=== PATIENT | female | born 1950 | race Caucasian/White ===

== ENCOUNTER 2016-11-04 15:21 | Inpatient (IN) | payer OTHER ==
[2016-11-04] MEDS ORDERED: NITROGLYCERIN SL PRN (15:45)
[2016-11-04] MEDS ORDERED: ASPIRIN PO STA (15:45)
[2016-11-04] MEDS ORDERED: DUONEB (A & A) ONE (15:46)
--- NOTE | 2016-11-04 15:56 | PROVIDER DOCUMENTATION ---
HPI-Respiratory General <Shaggy Barros Jr - Last Filed: 11/04/16 17:05> - General Source: patient, EMS - History of Present Illness-Resp Quality of Pain: reports: none Severity in ED: reports: mild Onset/Duration: reports: this morning Timing: reports: still present Similar Symptoms Previously?: No Recently seen or treated by another doctor?: No <ElmoreChema - Last Filed: 11/04/16 17:43> <Soraida Garza - Last Filed: 11/04/16 20:14> - General Chief Complaint: Shortness of Breath Stated Complaint: Wheezing,Urinary Pain Time Seen by Provider: 11/04/16 15:44 Allergies/Adverse Reactions: Patient Allergies Allergy/AdvReac Type Severity Reaction Status Date / Time oxybutynin Allergy Unknown Verified 08/25/16 01:05 pregabalin [From Lyrica] Allergy SWELLING Verified 08/25/16 01:05 Sulfa (Sulfonamide AdvReac HIVES Verified 08/25/16 01:05 Antibiotics) Home Medications: Fluticasone 50 Mcg Nasal [place] [Flonase] 2 spray [place] DAILY PRN PRN 06/24/14 Gabapentin [Neurontin] 600 mg PO TID 06/24/14 Metoprolol Tartrate 25 mg PO BID 06/24/14 Potassium Chloride E.r. [Klor-Con] 10 meq PO DAILY 06/24/14 Tizanidine [Zanaflex] 4 mg PO QHS 06/24/14 Tolterodine Tartrate [Detrol LA] 4 mg PO QHS 06/24/14 Aspirin 81 mg PO DAILY 11/05/15 Atorvastatin Calcium [Lipitor] 40 mg PO QHS 11/05/15 Diazepam [Valium] 1 tab PO DAILY 07/29/16 Albuterol Sulfate [Proair Hfa] 2 puff IH Q4-6H PRN PRN 08/05/16 Alosetron HCl 0.5 mg PO BID 08/05/16 Diclofenac Sodium 50 mg PO BID 08/05/16 Ergocalciferol (Vitamin D2) [Vitamin D] 50,000 unit PO Q7D 08/05/16 Prednisone 20 mg PO BID 08/05/16 Temazepam 15 mg PO QHS 08/05/16 - History of Present Illness-Resp Nature of Presenting Problem: Reports to er by ems with cc of sob and lethargy. EMS reports family stated that pt hasn't been acting herself states that she took some generic percocet this mornig. EMS reports on there arrival that pt was satting at 88% after breathing treatment went up to 96% pt was alert and oriented x 3 on arrival.Pt denies being on home 02 hx of copd and reports smokes 1/2 ppd (Chema Elmore) Review of Systems - Adult - REVIEW OF SYSTEMS - ADULT ROS:: limited per condition Constitutional: reports: see HPI Eyes: denies: discharge, blurred vision, double vision Ears, Nose, Mouth & Throat: denies: ear discharge, ear pain, sinus problem, nose pain, throat pain Cardiovascular: reports: no symptoms reported Respiratory: reports: see HPI, shortness of breath. denies: hemoptysis, pleurisy, wheezing Gastrointestinal: reports: no symptoms reported Genitourinary: reports: no symptoms reported Musculoskeletal: reports: no symptoms reported Integumentary: reports: no symptoms reported Neurological: reports: no symptoms reported Psychiatric: reports: no symptoms reported Endocrine: reports: no symptoms reported Hematologic/Lymphatic: reports: no symptoms reported Allergic/Immunologic: reports: no symptoms reported All Other Systems: Reviewed and Negative <Chema Elmore - Last Filed: 11/04/16 17:43> Past History - Adult - PAST MEDICAL HISTORY-ADULT Review of Records: reports: Nursing Assessment Review, Medications Reviewed Major Childhood Illnesses: reports: denies history Cardiovascular: reports: HTN, hyperlipidemia Neurological: reports: CVA - PRIOR SURGERIES/PROCEDURES Surgical/Procedure History: reports: none - IMMUNIZATION STATUS Childhood Immunizations: See Nurse Assessment Flu Vaccine: See Nurse Assessment - FAMILY HISTORY Family History: reviewed, not pertinent - SOCIAL HISTORY Smoking: cigarettes, less than 1 pack/day Provider spent 3-5 mins advising pt. on dangers of tobacco.: Discussed manners to quit use, and f/u contacts for add'l counseling. Substance Use: none/never <Chema Elmore - Last Filed: 11/04/16 17:43> Physical Exam-General - PHYSICAL EXAM-ADULT Initial Vital Signs Reviewed: Yes - CONSTITUTIONAL General Appearance: alert, no apparent distress, lethargic - EYES Eyes: PERRL/EOMI - HEAD, EARS, NOSE, MOUTH & THROAT HENMT: normocephalic/atraumatic, moist mucous membranes, normal ENT inspection, TMs normal, pharynx normal - RESPIRATORY Respiratory: chest non-tender, lungs clear, normal breath sounds, no pleuratic chest pain, no respiratory distress, respiratory distress, other (pt is satting 88 on 3lpm NC upon exam) - CARDIOVASCULAR Cardiovascular: normal peripheral pulses, regular rate, rhythm, no edema, no gallop, no JVD, no murmur - GASTROINTESTINAL (ABDOMEN) Abdominal Exam: normal bowel sounds, non tender, soft - MUSCULOSKELETAL Back Exam: normal inspection Extremity: normal range of motion, non-tender - SKIN Integumentary: normal turgor, warm/dry, jaundice - PSYCHIATRIC Psych/Mental Status: other (pt continues to doze in and out of sleep upon exam) <Chema Elmore - Last Filed: 11/04/16 17:43> Progress - XRAY 1 XRAY Study: Chest Impression: Abnormal (low lung volumes. nonspecific findings.) <Shaggy Barros Jr - Last Filed: 11/04/16 17:05> - EKG 1 Time of EKG reading by physician:: 15:35 EKG Read and Signed by:: Shaggy Barros Jr EKG Interpretation (*Must complete 3 of following elements*): Abnormal (poss lae ) Rate: 87 Rhythm: nsr [place]: normal - CHANGE OF SHIFT REPORT (ED Provider) Report Given and Care Transferred to:: Time of Transfer: 18:00 Items Pending: Labs <Chema Elmore - Last Filed: 11/04/16 17:43> - REASSESSMENT Reassessment #1 Time Reassessed: 19:56 (Dr. Bailey at bedside to discuss pt results. Will consult Dr. Valladares for possible admission) - CONSULTS/PCP/HOSPITALIST Notification #1 *Consult/PCP/Hospitalist*: Dr. Valladares Time Discussed: 20:03 Consult Disposition: Admit <Soraida Garza - Last Filed: 11/04/16 20:14> - PLAN OF CARE/RESULTS Progress/Plan/Lab Results: Orders Category Date Time Status Cardiac Monitoring DIRECTED Care 11/04/16 15:45 Active Saline Loc NOW Care 11/04/16 15:45 Active CHEST-PORTABLE [RAD] Stat Exams 11/04/16 15:45 Taken CBC WITH ELECTRONIC DIFF [HEME] Stat Lab 11/04/16 16:05 Ordered CK PROFILE [SP CHEM] Stat Lab 11/04/16 16:05 Ordered COMPREHENSIVE METABOLIC PANEL [CHEM] Stat Lab 11/04/16 16:05 Ordered MAGNESIUM [CHEM] Stat Lab 11/04/16 16:05 Ordered PRO B-NATRIURETIC PEPTIDE Stat Lab 11/04/16 16:05 Ordered PROTIME WITH INR [COAG] Stat Lab 11/04/16 16:05 Ordered PTT [COAG] Stat Lab 11/04/16 16:05 Ordered TROPONIN T Stat Lab 11/04/16 16:05 Ordered Albuterol 2.5MG/Ipratrop 0.5MG [Duoneb (A & A)] Med 11/04/16 15:46 Discontinued 3 ml .ROUTE .STK-MED ONE Aspirin Med 11/04/16 15:45 Discontinued 325 mg PO STAT STA Naloxone [Narcan] Med 11/04/16 16:16 Discontinued 0.4 mg IV NOW ONE Nitroglycerin Sl [Nitroglycerin] Med 11/04/16 15:45 Active 0.4 mg SL Q5M PRN PRN EKG [EKG] ONCE Ther 11/04/16 15:33 Ordered Vital Signs - 24 hr 11/04/16 15:39 Temperature 98.0 F Pulse Rate 87 Respiratory 20 Rate Blood Pressure 103/86 O2 Sat by Pulse 87 L Oximetry (Chema Elmore) plan of care: imaging, labs, medications, EKG Orders Category Date Time Status Admit - [facility] Routine AdmDCTranf 11/04/16 20:09 Ordered Activity - Strict Bedrest ORDERED Care 11/04/16 20:08 Active Cardiac Monitoring DIRECTED Care 11/04/16 15:45 Active Neurological Check Q4H Care 11/04/16 20:10 Active Saline Loc NOW Care 11/04/16 15:45 Active Vital Signs Order ORDERED Care 11/04/16 20:08 Active NPO Diet 11/04/16 20:11 Active CHEST-PORTABLE [RAD] Stat Exams 11/04/16 15:45 Draft BLOOD CULTURE [BLDCUL] Stat Lab 11/04/16 15:55 Results CBC WITH ELECTRONIC DIFF [HEME] Stat Lab 11/04/16 18:22 Completed CK PROFILE [SP CHEM] Stat Lab 11/04/16 18:22 Completed COMPREHENSIVE METABOLIC PANEL [CHEM] Stat Lab 11/04/16 18:22 Completed MAGNESIUM [CHEM] Stat Lab 11/04/16 18:22 Completed PRO B-NATRIURETIC PEPTIDE Stat Lab 11/04/16 18:22 Completed PROTIME WITH INR [COAG] Stat Lab 11/04/16 18:22 Completed PTT [COAG] Stat Lab 11/04/16 18:22 Completed TROPONIN T Stat Lab 11/04/16 18:22 Completed 0.9% Sodium Chloride Inj [Ns] 1,000 ml Med 11/04/16 19:27 Active IV 125 mls/hr Albuterol 2.5MG/Ipratrop 0.5MG [Duoneb (A & A)] Med 11/04/16 15:46 Discontinued 3 ml .ROUTE .STK-MED ONE Albuterol 2.5MG/Ipratrop 0.5MG [Duoneb (A & A)] Med 11/04/16 17:16 Discontinued 3 ml INH NOW ONE Aspirin Med 11/04/16 15:45 Discontinued 325 mg PO STAT STA Magnesium Sulfate 2 gm/S.w.i. [Magnesium Sulfate 2 gm/S Med 11/04/16 19:29 Active .w.i] 50 ml IV NOW Naloxone [Narcan] Med 11/04/16 16:16 Discontinued 0.4 mg IV NOW ONE Nitroglycerin Sl [Nitroglycerin] Med 11/04/16 15:45 Active 0.4 mg SL Q5M PRN PRN Aerosol Treatments Routine Oth 11/04/16 17:16 Completed Aerosol Treatments Stat Oth 11/04/16 17:16 Completed Oxygen Device Routine Oth 11/04/16 20:10 Active Telemetry [OM.EQ] Routine Oth 11/04/16 20:08 Active EKG [EKG] ONCE Ther 11/04/16 15:33 Ordered Laboratory Tests 11/04/16 11/04/16 11/04/16 18:22 18:22 18:22 WBC 18.83 H RBC 3.47 L Hgb 10.4 L Hct 30.9 L MCV 89.0 MCH 30.0 MCHC 33.7 RDW Std Deviation 15.0 H Plt Count 303 MPV 10.7 H Immature Gran % (Auto) 0.6 H Neut % (Auto) 93.1 H Lymph % (Auto) 2.9 L [place] % (Auto) 3.1 Eos % (Auto) 0.2 Baso % (Auto) 0.1 Immature Gran # (Auto) 0.11 H Neut # 17.54 H Lymph # 0.54 L [place] # 0.59 Eos # 0.03 Baso # 0.02 Segmented Neutrophils Cancelled Band Neutrophils Cancelled Lymphocytes Cancelled Monocytes Cancelled Eosinophils Cancelled Basophils Cancelled Metamyelocytes Cancelled Myelocytes Cancelled Promyelocytes Cancelled Nucleated RBCs Cancelled Atypical Lymphocytes Cancelled Blast Cells Cancelled Hypochromia Cancelled Vacuolization Cancelled Toxic Granulation Cancelled Dohle Bodies Cancelled Large Platelets Cancelled Polychromasia Cancelled Poikilocytosis Cancelled Basophilic Stippling Cancelled Anisocytosis Cancelled Microcytosis Cancelled Macrocytosis Cancelled Spherocytes Cancelled Sickle Cells Cancelled Target Cells Cancelled Ovalocytes Cancelled Stomatocytes Cancelled Richards-Oak Bodies Cancelled Chris Cells Cancelled Unidentified Cells Cancelled Schistocytes Cancelled PT INR PTT (Actin FS) Sodium 113 L* Potassium 4.4 Chloride 79 L Carbon Dioxide 19 L Anion Gap 15 BUN 22 Creatinine 2.4 H Estimated GFR/1.73 m2 20 BUN/Creatinine Ratio 9 Glucose 62 L Calculated Osmolality 230 Calcium 8.8 Magnesium 0.9 L* Total Bilirubin 0.92 AST 23 ALT 6 L Alkaline Phosphatase 136 H Creatine Kinase 201 H Creatine Kinase Index 3.3 H CK-MB (CK-2) 6.55 H Troponin T Oin-W-Koqqvtjtdur Pept 4153 H Total Protein 5.7 L Albumin 3.1 L Globulin 2.6 Albumin/Globulin Ratio 1.2 11/04/16 11/04/16 18:22 18:22 WBC RBC Hgb Hct MCV MCH MCHC RDW Std Deviation Plt Count MPV Immature Gran % (Auto) Neut % (Auto) Lymph % (Auto) [place] % (Auto) Eos % (Auto) Baso % (Auto) Immature Gran # (Auto) Neut # Lymph # [place] # Eos # Baso # Segmented Neutrophils Band Neutrophils Lymphocytes Monocytes Eosinophils Basophils Metamyelocytes Myelocytes Promyelocytes Nucleated RBCs Atypical Lymphocytes Blast Cells Hypochromia Vacuolization Toxic Granulation Dohle Bodies Large Platelets Polychromasia Poikilocytosis Basophilic Stippling Anisocytosis Microcytosis Macrocytosis Spherocytes Sickle Cells Target Cells Ovalocytes Stomatocytes Richards-Oak Bodies Chris Cells Unidentified Cells Schistocytes PT 12.0 H INR 1.13 PTT (Actin FS) 42.3 H Sodium Potassium Chloride Carbon Dioxide Anion Gap BUN Creatinine Estimated GFR/1.73 m2 BUN/Creatinine Ratio Glucose Calculated Osmolality Calcium Magnesium Total Bilirubin AST ALT Alkaline Phosphatase Creatine Kinase Creatine Kinase Index CK-MB (CK-2) Troponin T < 0.010 Xmb-B-Rcskrnrighs Pept Total Protein Albumin Globulin Albumin/Globulin Ratio Vital Signs - 24 hr 11/04/16 11/04/16 11/04/16 15:39 17:20 17:24 Temperature 98.0 F Pulse Rate 87 86 Respiratory 20 20 Rate Blood Pressure 103/86 91/57 O2 Sat by Pulse 87 L 95 Oximetry 11/04/16 19:47 Temperature Pulse Rate Respiratory Rate Blood Pressure 117/69 O2 Sat by Pulse 96 Oximetry Pt/family given results. Pt will be admitted to the hospital by Dr. Valladares. PT/ Family in agreement with plan of care. (Soraida Garza) Departure <Shaggy Barros Jr - Last Filed: 11/04/16 17:05> <Chema Elmore - Last Filed: 11/04/16 17:43> - Departure Time of Disposition Order: 20:13 Certified Medical Emergency: Emergent <Soraida Garza - Last Filed: 11/04/16 20:14> - Departure DIAGNOSIS: Hyponatremia Disposition: ADMITTED INPATIENT 09 Condition: Stable Attestation - Scribe Verification/Attestation Scribe:: Chema Elmore Acting as Scribe for:: Shaggy Barros Jr Scribe documention review:: This chart was documented by a scribe and accurately reflects the service the provider performed and the decisions made by the provider. <Chema Elmore - Last Filed: 11/04/16 17:43> - Scribe Verification/Attestation #2 Shift Change Time: 18:00 Scribe Name: Soraida Garza Acting as Scribe for:: Shahid Bailey <Soraida Garza - Last Filed: 11/04/16 20:14> Physician Attestation - Physician Attestation I, the provider, attest to the following statement:: Shahid Bailey Physician documentation Attestation:: This documentation recorded by the scribe accurately reflects the service I personally performed and the decisions made by me. <Soraida Garza - Last Filed: 11/04/16 20:14>
[2016-11-04] MEDS ORDERED: NARCAN IV ONE (16:16)
--- NOTE | 2016-11-04 16:59 | Diag Imaging Result Document ---
PROCEDURE NAME: CHEST-PORTABLE - 11/04/2016 PORTABLE CHEST X-RAY: COMPARISON: 08/25/2016. FINDINGS: Lung volumes are much lower with nonspecific central crowding. Infiltrates or edema cannot be excluded. Heart size remains normal. IMPRESSION: Much lower lung volumes. Nonspecific findings.
[2016-11-04] MEDS ORDERED: DUONEB (A & A) INH ONE (17:16)
[2016-11-04 18:32] LABS: BASO% 0.1 % (0.0-0.8); EOS# 0.03 X1000 (0.0-0.7); EOS% 0.2 % (0.0-10.0); HEMATOCRIT 30.9 % (37.0-47.0); HEMOGLOBIN 10.4 g/dL (12.0-16.0); IMM GRAN# 0.11 X1000 (0.0-0.04); IMM GRAN% 0.6 % (0.0-0.5); LYMPH# 0.54 X1000 (1.2-3.4); LYMPH% 2.9 % (20.5-51.1); MANUAL DIFF NEEDED? YES; MCHC 33.7 g/dL (33-37); MONO# 0.59 X1000 (0.11-0.59); MONO% 3.1 % (1.7-9.3); MPV 10.7 FL (7.4-10.4); NEUT% 93.1 % (42.2-75.2); PLT 303 X1000 (130-400); RBC 3.47 XMIL (4.2-5.4)
[2016-11-04 18:42] LABS: INR 1.13
[2016-11-04 18:43] LABS: PTT 42.3 Seconds (22.0-36.0)
[2016-11-04 19:12] LABS: ALBUMIN 3.1 g/dL (3.5-5.0); CALCIUM 8.8 mg/dL (8.8-10.2); POTASSIUM 4.4 mmol/L (3.5-5.1); TOTAL BILIRUBIN 0.92 mg/dL (0.20-1.00); TOTAL PROTEIN 5.7 g/dL (6.3-8.3)
[2016-11-04 19:13] LABS: MAGNESIUM 0.9 mg/dL (1.5-2.7)
[2016-11-04] MEDS ORDERED: NS 1,000 ML IV ONE (19:27)
[2016-11-04 19:29] LABS: CK INDEX 3.3 (0.0-2.5); CK-MB 6.55 ng/mL (0.0-5.0)
[2016-11-04] MEDS ORDERED: MAGNESIUM SULFATE 2 GM/S.W.I. 50 ML IV ONE (19:29)
[2016-11-04] MEDS ORDERED: VENTOLIN HFA INH PRN (20:24)
[2016-11-04] MEDS ORDERED: FLONASE NAS PRN (20:24)
[2016-11-04] MEDS: LOPRESSOR PO SCH (20:50)
[2016-11-04] MEDS: PREDNISONE PO SCH (20:50)
[2016-11-04] MEDS: LIPITOR PO SCH (20:51)
[2016-11-04] MEDS: VITAMIN D PO SCH (20:52)
--- NOTE | 2016-11-04 22:36 | HISTORY AND PHYSICAL ---
CHIEF COMPLAINT: Lethargy and shortness of breath. PRESENT ILLNESS: The patient presented with some lethargy and apparent acute mental status changes. She has also been coughing, has a history of bronchitis. She smokes half a pack of cigarettes a day. When she came in she was given some naloxone and she did wake up some. She is still confused now. She is on several home medications, including Flonase, Neurontin, metoprolol, potassium, Zanaflex, Detrol, aspirin, Lipitor, Valium, albuterol, aldosterone, hydrochloride, diclofenac sodium, vitamin D, prednisone 20 mg twice daily and temazepam at bedtime. Also apparently had been on some oxycodone. She said she had not been eating or drinking well. Denies any chest pain. It was hard to get a good history from her as her mind kept wandering even though she was awake. She says she is having trouble remembering right now. PAST MEDICAL HISTORY: Hip surgery after fracture on the left. Apparently she could not tell the emergency room physician and had it listed as no surgeries, but that is what she told me, so I think her thinking is changing and going in and out. Says she does not use alcohol but she does use tobacco. Had some emphysema by history or COPD. REVIEW OF SYSTEMS: Neurologic: May not be very accurate. I asked her neurologically and she denied headaches, seizures, visual problems, hearing problems. Pulmonary: Has had a little shortness of breath. Cardiovascular: Denies chest pains, heart palpitations, PND or orthopnea. No edema. GI: Denies hematochezia, hematemesis, melena, constipation, diarrhea. : Denies any trouble with urination, but I see that she is on Detrol. Endocrine: Denies diabetes or pituitary or thyroid problems. Apparently, earlier she had an O2 saturation of 88%. She took some Percocet, so she may have been compromised with her Percocet, maybe with her benzodiazepines. PHYSICAL EXAMINATION: VITAL SIGNS: Temperature is 97.9 degrees Fahrenheit, pulse 83, respirations 15, blood pressure 126/57. Seems to be breathing all right at this time. HEENT: She is normocephalic intact. PERRLA. Throat clear. Fundi benign. NECK: Supple without thyromegaly, lymphadenopathy, or carotid bruits. LUNGS: Have some scattered rales and wheezes. HEART: Regular rate and rhythm without murmurs, gallops, or friction rubs. ABDOMEN: Soft. Active bowel sounds. No organomegaly or tenderness. NEUROLOGICAL: Cranial nerves 2-12 intact grossly. Sensory, motor intact. Reflexes 1+ all. LYMPHATIC: Lymph nodes are nonpalpable in cervical, supraclavicular areas. INTEGUMENT: Shows no lesions consistent with melanoma or skin cancers. LABORATORY: Shows a white count of 18,830, hemoglobin 10.4, platelet count 303,000. She has neutrophils 17,540. PT is 12. INR is 1.13. PTT is 42.3. Sodium was only 113 which she has had low in the past. Potassium 4.4, creatinine was 1.3 in July here in the hospital. It is 2.4 here with a BUN of 22. Her alkaline phosphatase was slightly up at 136, CK was 201 with a CK index of 3.3, and a CK-MB of 6.55, but troponin was less than 0.010. ProBNP was 4153, total protein was a little low, so was albumin. She says she has not been eating well. I think she probably does have some dehydration plus has low sodium as well which could be causing some of her lethargy and confusion as well as perhaps some overdose of Percocet or taking Percocet without eating. PROVISIONAL DIAGNOSIS: 1. Altered mental status. 2. Hyponatremia. 3. Bronchospasm and bronchitis. Chest x-ray was essentially clear. This could also be contributing. To some of the hyponatremia. 4. Chronic pain syndrome. 5. Hyperlipidemia. 6. Chronic obstructive pulmonary disease. 7. Leukocytosis. 8. Acute renal failure. PLAN: We will admit. We will give IV fluids slowly. We will consult Nephrology in the morning. We will treat with antibiotics. She is apparently allergic to oxybutynin, Lyrica and sulfa. Please see orders.
[2016-11-04] MEDS: NS 1,000 ML IV SCH (23:04)
[2016-11-04] MEDS: TAZIDIME 1 GM in NS 50 ML IV SCH (23:04)
[2016-11-05 02:47] LABS: URINE SOURCE VOIDED
[2016-11-05 03:13] LABS: COLOR RED; SP GRAVITY URINE 1.016; TURBIDITY URINE TURBID (CLEAR)
[2016-11-05 03:27] LABS: UR EPITHELIAL CELLS >10 /HPF (<10); URINE BACTERIA 1+ /HPF; URINE MICRO REVIEW NEEDED? YES; URINE WBC TNTC /HPF (<10)
[2016-11-05 03:29] LABS: UR CREAT RANDOM 136.6 mg/dL (11-20)
[2016-11-05 03:38] LABS: BILIRUBIN URINE SMALL (NEGATIVE); BLOOD URINE SMALL (NEGATIVE); GLUCOSE URINE NEGATIVE (NEGATIVE); LEUKOCYTES URINE MODERATE (NEGATIVE); NITRITE URINE POSITIVE (NEGATIVE); PH URINE 5.5; PROTEIN URINE 70 mg/dL (NEGATIVE); UROBILINOGEN URINE 3 mg/dL (NORMAL)
[2016-11-05 03:39] LABS: UR PROT RANDOM 164.4 mg/dL
[2016-11-05 03:42] LABS: URINE RBC TNTC /HPF (<10)
--- NOTE | 2016-11-05 05:55 | EKG Report ---
Test Performed on : 11/04/2016 7:31:37 PM Test Reason : SOB Blood Pressure : / mmHG Vent. Rate : 087 BPM Atrial Rate : 087 BPM P-R Int : 240 ms QRS Dur : 074 ms QT Int : 372 ms P-R-T Axes : 046 -07 018 degrees QTc Int : 447 ms Sinus rhythm. with 1st degree AV block. Otherwise normal ECG When compared with ECG of 04-NOV-2016 15:35, (Unconfirmed) GA interval has increased Unconfirmed Result
--- NOTE | 2016-11-05 05:56 | EKG Report ---
Test Performed on : 11/04/2016 3:35:31 PM Test Reason : SOB Blood Pressure : / mmHG Vent. Rate : 087 BPM Atrial Rate : 087 BPM P-R Int : 204 ms QRS Dur : 086 ms QT Int : 380 ms P-R-T Axes : 038 -12 033 degrees QTc Int : 457 ms Normal sinus rhythm. Possible Left atrial enlargement Borderline ECG When compared with ECG of 24-JUN-2014 14:49, No significant change was found Unconfirmed Result
[2016-11-05] MEDS: PROTONIX PO SCH (06:07)
[2016-11-05 06:09] LABS: EOS# 0.01 X1000 (0.0-0.7); HEMATOCRIT 25.1 % (37.0-47.0); HEMOGLOBIN 8.6 g/dL (12.0-16.0); IMM GRAN# 0.17 X1000 (0.0-0.04); IMM GRAN% 0.6 % (0.0-0.5); LYMPH# 0.57 X1000 (1.2-3.4); MANUAL DIFF NEEDED? YES; MCH 30.2 PG (27-31); MCHC 34.3 g/dL (33-37); MCV 88.1 FL (81-99); MONO# 0.31 X1000 (0.11-0.59); MONO% 1.1 % (1.7-9.3); MPV 10.9 FL (7.4-10.4); NEUT% 96.3 % (42.2-75.2); PLT 293 X1000 (130-400); RBC 2.85 XMIL (4.2-5.4)
[2016-11-05 06:23] LABS: BANDS 16 % (0-1); LYMPHS 4 % (21-51); MONO 4 % (1-9)
[2016-11-05] MEDS: NS 1,000 ML IV SCH ×3 (06:37→22:38)
[2016-11-05] MEDS: TAZIDIME 1 GM in NS 50 ML IV SCH ×3 (06:37→22:35)
[2016-11-05 06:44] LABS: CK INDEX 1.8 (0.0-2.5); CK-MB 14.68 ng/mL (0.0-5.0); MAGNESIUM 1.7 mg/dL (1.5-2.7)
[2016-11-05] MEDS ORDERED: NS 1,000 ML IV ONE (07:37)
[2016-11-05] MEDS ORDERED: NACL 3% 500 ML IV SCH (07:45)
[2016-11-05 08:04] LABS: URINE SOURCE CATH
[2016-11-05 08:10] LABS: URINE MICRO REVIEW NEEDED? YES
[2016-11-05 08:11] LABS: BILIRUBIN URINE SMALL (NEGATIVE); BLOOD URINE MODERATE (NEGATIVE); COLOR BROWN; GLUCOSE URINE NEGATIVE (NEGATIVE); LEUKOCYTES URINE LARGE (NEGATIVE); NITRITE URINE POSITIVE (NEGATIVE); PH URINE 5.5; PROTEIN URINE 30 mg/dL (NEGATIVE); SP GRAVITY URINE 1.011; TURBIDITY URINE TURBID (CLEAR); UROBILINOGEN URINE 2 mg/dL (NORMAL)
[2016-11-05 08:16] LABS: URINE BACTERIA 4+ /HPF; URINE CASTS NONE SEEN; URINE CRYSTALS NONE SEEN; URINE CULTURE NEEDED? YES; URINE SMALL ROUND CELLS NONE SEEN; URINE WBC TNTC /HPF (<10)
[2016-11-05] MEDS: DUONEB (A & A) INH PRN ×3 (09:19→19:14)
[2016-11-05] MEDS: KLOR-CON PO SCH (09:46)
[2016-11-05] MEDS: PERCOCET-10 PO PRN ×2 (09:46→20:15)
[2016-11-05] MEDS: ASPIRIN PO SCH (09:47)
[2016-11-05] MEDS: FORTICAL NAS SCH (09:47)
[2016-11-05] MEDS: PREDNISONE PO SCH ×2 (09:47→20:15)
[2016-11-05] MEDS: LOPRESSOR PO SCH ×2 (09:48→20:15)
[2016-11-05] MEDS: VALIUM PO SCH (09:48)
--- NOTE | 2016-11-05 09:58 | PROGRESS NOTE ---
DATE: 11/05/2016 SUBJECTIVE: Ms. Beyer was admitted yesterday with altered mental status. She is severely hyponatremic. Sodium was 108 this morning. It went down, actually. She has been seen by Dr. Farr who has ordered INCOMPLETE REPORT - DICTATION ENDS HERE.
[2016-11-05 11:19] LABS: ALBUMIN 2.9 g/dL (3.5-5.0); CALCIUM 7.8 mg/dL (8.8-10.2); POTASSIUM 4.8 mmol/L (3.5-5.1)
[2016-11-05 11:25] LABS: UR CREAT RANDOM 84.3 mg/dL (11-20); UR PROT RANDOM 44.9 mg/dL
--- NOTE | 2016-11-05 11:36 | CONSULTATION ---
DATE OF CONSULTATION: 11/05/2016 REASON FOR ADMISSION: Increased shortness of breath with weakness. REASON FOR CONSULTATION: Acute kidney injury on chronic kidney disease and hyponatremia. CONSULTING PHYSICIAN: Dr. Valladares. HISTORY OF PRESENT ILLNESS: Ms Beyer is a 66-year-old white female, who has not been seen by our practice, who presents to [facility] with increased lethargy and altered mental status. Daughter stated that the patient has been at home, she has been coughing. She has a history of bronchitis and continues to be a half a pack of cigarettes per day smoker. The patient has chronic pain syndrome and takes pain medication at home. She was given naloxone in the emergency room, at which time she did wake up as she is confused. During her hospital visit and evaluation with review of systems today, patient states that she has had dark urine, itching and burning upon urination, and patient states that she has been taking AZO 3-6 times a day over the counter to assist with her urinary tract symptoms. She states that she was hospitalized within the last year with urinary tract infection also. She states that she knows that she has not been eating and drinking well, although she is slightly confused today as to most recent events. She denies any increased work of breathing or chest pain at this time. She denies any nausea or vomiting. No diarrhea, although she states she has had a poor appetite at home. She denies any fever chills, although she states that she does not think that she has had any difficulty urinating, although it is discolored from taking the AZO. PAST MEDICAL HISTORY: She is noted to have hypertension. She has had a history of hyponatremia and hypopotassemia. She has hyperlipidemia. She has vitamin D deficiency. She has COPD, esophageal reflux, osteoarthritis, osteoporosis, fibromyalgia. She has had cerebrovascular disease and history of systemic lupus erythematosus. REVIEW OF SYSTEMS: She is unable to give a complete review of systems. PREVIOUS SURGICAL HISTORY: Hysterectomy, tonsillectomy and a left hip IM nail. SOCIAL HISTORY: She lives alone. She has family who are attentive to her care. She continues to smoke a half a pack of cigarettes per day she states since the age of 17, which puts her at a 46- year-old, pack per day smoker. She denies any alcohol or illicit drug use. CURRENT ALLERGIES: Oxybutynin, pregabalin, sulfonamide antibiotics. HOME MEDICATIONS: Listed as potassium chloride, Detrol LA, Flonase, metoprolol , Zanaflex, Neurontin, Lipitor, baby aspirin, Valium, vitamin D 2, ergocalciferol 50,000 weekly, temazepam, ProAir, sulfate, albuterol, alosetron hydrochloride, diclofenac sodium, Lexapro , TriCor, MiraLAX, Protonix and Dennehotso. She also takes calcitonin salmon on a daily basis. REVIEW OF SYSTEMS: Times 10 with pertinent positives listed above in the HPI. MOST RECENT VITAL SIGNS: Temperature 97.8 degrees, blood pressure 132/76, heart rate 84, respirations 20. She is on 4 L nasal cannula. Last recorded saturation 96%. She has had 1149 in; she has had 325 out per void. She now has a Bass catheter in place. She has greater than 500 mL in the bag. LABORATORY DATA: This a.m., sodium 108, potassium 5, chloride 77, CO2 17, BUN 26, creatinine 2.2, glucose 90. Anion gap 14, calcium 8, albumin 3.1, magnesium 1.7. White count 28.11, hemoglobin 8.6, hematocrit 25.1 with a platelet count of 293,000. Her pro time is 12.0, INR 1.13. She has a PTT of 42.3. She has a FENa score of 0.5% with a urine osmolality of 265. PHYSICAL EXAMINATION: General: This is a 66-year-old white female. She is pleasantly confused, but cooperative. She has just had her bath; she is sitting up in bed. She is brushing and picking at her linens. She is able to assist with her exam. She is in no acute distress. Skin: Warm and dry. HEENT: Normocephalic, atraumatic. Conjunctiva is pale. She has SIN. Mucous membranes moist. Neck: Supple. Trachea midline. No JVD evident. Cardiovascular: Regular rate and rhythm. No murmur or gallop appreciated. Lungs: Clear to auscultation anterior. She has a faint crackle to the right lower base. She remains on O2 equal excursion. Abdomen: Soft, nontender. Positive bowel sounds. Genitourinary: Bass catheter is in place. Her urine is red- orange in color. She does have some redness prepubertal and perianal. Integumentary: No rashes or lesions evident, although she has some dryness to the lower extremities. Extremities: No edema, no clubbing or cyanosis. Neurological: Patient is pleasantly confused. She is alert to person and cannot remember random events (none most recent). ASSESSMENT AND PLAN: 1. Acute kidney injury. Patient's creatinine is 2.2 with a baseline noted at 0.9 prior to this hospitalization. She appears to be dry. Her FENa score is 0.5%. She has normal saline infusing at 90 mL an hour after receiving 1 liter bolus. We will check urine electrolytes. We will check further renal ultrasound. She has had a Bass catheter placed with adequate improved urine output. 2. Electrolytes. Patient has worsening hyponatremia. She has dropped from 113 to 108. Her hydrochlorothiazide has been stopped. She is not on any other medications that are indicative of possibly triggering hyponatremia. She has been treated with a normal saline bolus. We will check electrolytes repeated at 10:30 this a.m., and will continue to check her sodiums every 6 hours with hopes of improvement with normal saline infusion. We will place her on an oral fluid restriction at this time to 1 liter, even though patient continues to have a poor appetite. 3. Acid-base balance. This remains stable. 4. Anemia. This remains low, but stable. No indications for any intervention. 5. Urinary tract infection. Patient is currently on Ceftin with culture pending. I would like to thank you for allowing us to follow with this patient. Data reviewed, discussed with Shan Maria on 11/05/16. I agree with the above assessment and plan of care. rg Dictated by LAUREN Anna for Ariel Farr MD [facility]
--- NOTE | 2016-11-05 12:22 | PROGRESS NOTE ---
DATE: 11/05/2016 ADDENDUM/COMPLETION: Ms. Beyer has hyponatremia. She was seen by Dr. Farr who has ordered hypertonic saline this morning. We will repeat her electrolytes again this afternoon and continue the current management. She has bilateral pneumonia and cultures have been done. She is being treated for that.
--- NOTE | 2016-11-05 12:23 | Diag Imaging Result Document ---
PROCEDURE NAME: US RENAL 2 (RETROPER) COMPLETE - 11/05/2016 RENAL ULTRASOUND: FINDINGS: The right kidney measures 10.2 x 4.6 x 4.5 cm. Questionable mild increased echogenicity. There is a 7 mm cyst in the mid kidney. No stone or hydronephrosis. Normal cortical thickness. The left kidney measures 9.9 x 5.3 x 4.8 cm. Questionable mild increased echogenicity. Normal cortical thickness. No stone or hydronephrosis. No renal mass. IMPRESSION: 1. Tiny right renal cyst. 2. Questionable mild increased renal echogenicity. [facility]
[2016-11-05] MEDS: NS IV SCH (12:58)
[2016-11-05] MEDS: DIFLUCAN IV SCH (12:58)
[2016-11-05 14:17] LABS: CK INDEX 1.7 (0.0-2.5); CK-MB 24.21 ng/mL (0.0-5.0)
[2016-11-05] MEDS: LIPITOR PO SCH (20:15)
[2016-11-05 21:46] LABS: CK INDEX 2.2 (0.0-2.5); CK-MB 24.44 ng/mL (0.0-5.0)
[2016-11-06 04:36] LABS: HEMATOCRIT 26.5 % (37.0-47.0); HEMOGLOBIN 9.1 g/dL (12.0-16.0); IMM GRAN% 0.6 % (0.0-0.5); LYMPH% 1.3 % (20.5-51.1); MANUAL DIFF NEEDED? YES; MCH 30.2 PG (27-31); MCHC 34.3 g/dL (33-37); MONO# 0.46 X1000 (0.11-0.59); MONO% 1.5 % (1.7-9.3); MPV 10.1 FL (7.4-10.4); NEUT% 96.6 % (42.2-75.2); PLT 324 X1000 (130-400); RBC 3.01 XMIL (4.2-5.4)
[2016-11-06 04:55] LABS: CALCIUM 8.1 mg/dL (8.8-10.2); POTASSIUM 5.1 mmol/L (3.5-5.1)
[2016-11-06] MEDS: PROTONIX PO SCH (06:01)
[2016-11-06] MEDS: TAZIDIME 1 GM in NS 50 ML IV SCH ×3 (06:01→22:33)
[2016-11-06] MEDS: DUONEB (A & A) INH PRN ×4 (07:45→20:40)
[2016-11-06 08:21] LABS: BANDS 2 % (0-1); LYMPHS 2 % (21-51)
[2016-11-06] MEDS ORDERED: VANCOMYCIN IV PER PHARMACY MISC SCH (08:45)
--- NOTE | 2016-11-06 08:57 | PROGRESS NOTE ---
DATE: 11/06/2016 SUBJECTIVE: Ms. Beyer is very confused. She was hypoxic earlier this morning. OBJECTIVE: Vital Signs: Her vital signs are stable. Respiratory rate is 22 at the present time. O2 saturation had gone down to 73% earlier. The nurse found Ambien, as well as Percocet and possibly marijuana in her bed. Lungs: Her lungs sound congested bilaterally at the present time. LABS: The CBC shows white count of 31,000 with a hemoglobin of 9.1. Sodium has come up from 113 to 118 now. BUN and creatinine are almost unchanged. Creatine kinase was about 1116, normal. CK- MB is elevated. HOSPITAL COURSE: Patient is very restless. We are going to have to restrain her as she is going to take her non-rebreather mask off otherwise. We will repeat the chest x-ray and probably add another antibiotic at the present time. Her cultures have been negative so far. She has been on ceftazidime.
[2016-11-06] MEDS: SOLU-MEDROL IV SCH ×2 (09:26→17:06)
[2016-11-06] MEDS: DIFLUCAN IV SCH (09:27)
[2016-11-06] MEDS: NS IV SCH (09:27)
[2016-11-06] MEDS: NS 1,000 ML IV SCH (09:30)
[2016-11-06] MEDS: FORTICAL NAS SCH (09:30)
[2016-11-06] MEDS: VALIUM PO SCH (09:30)
[2016-11-06 10:27] LABS: BLOOD TYPE ARTERIAL; MODALITY NRB; PCO2(98.6) 24 mmHg (35-45); PO2(98.6) 133 mmHg (60-100); SAMPLE BLOOD; pH(98.6) 7.43 (7.35-7.45)
[2016-11-06 10:28] LABS: ALLEN TEST YES; DRAW SITE L RADIAL
[2016-11-06] MEDS ORDERED: VANCOMYCIN 1,350 MG in NS 250 ML IV ONE (11:00)
[2016-11-06] MEDS: KLOR-CON PO SCH (11:09)
[2016-11-06] MEDS: LOPRESSOR PO SCH ×2 (11:09→22:32)
[2016-11-06] MEDS: ASPIRIN PO SCH (11:09)
--- NOTE | 2016-11-06 13:03 | PROGRESS NOTE ---
DATE: 11/06/2016 TIME SEEN: 0900 hours. SUBJECTIVE: The patient is currently in bed. She is confused and lethargic. She is in restraints and pulling at mechanical device. OBJECTIVE: Vital Signs: Temperature 97.7 degrees, pulse 98, respiratory rate 22, blood pressure 156/91. Intake 3.7 L; output 2.2 L. General: This is an elderly female, chronically ill- appearing, resting in bed in a lethargic alternating with agitated state. She will make eye contact, thrash around in bed, and then close her eyes and make no movement. HEENT: Normocephalic, atraumatic. Oral mucosa appears dry. Neck: Supple. No JVD is noted. Cardiovascular: Regular rate and rhythm. No murmur or gallop. Pulmonary: She has rhonchi bilaterally. Scattered decreased breath sounds to the bases. She has some upper airway noise noted with breathing. Abdomen: Soft, with positive bowel sounds. : Bass catheter. Extremities: No clubbing, cyanosis or edema. Upper extremities are restrained. Neuro: Again, she remains in an alternating state of agitation and lethargy with confusion. She is able to tell me her name only. LAB DATA: WBC of 31, hemoglobin 9.8. Sodium 118, potassium 5.1, CO2 15, creatinine 1.6 and calcium 8.1. IMAGING: Ultrasound showed kidney size 10 cm and 9 cm with no hydronephrosis. ASSESSMENT AND PLAN: 1. Acute kidney injury with modest improvement overnight. I will continue her intravenous fluids. 2. Electrolytes. Her hyponatremia is improving. She has serial sodium. Lab draws scheduled every 6 hours. Continue to monitor. Her hydrochlorothiazide continued held, but her urine output is adequate. 3. Acid base balance, anemia. These appear stable. 4. Urinary tract infection. She is on appropriately-dosed antibiotics. Followed by primary. Dictated by LAUREN Salugero for Ariel Farr MD
[2016-11-06 17:56] LABS: ALLEN TEST YES; BE -8.6 mmoll (-3.0-3.0); BLOOD TYPE ARTERIAL; DRAW SITE L RADIAL; METHB 1.8 % (0.0-1.5); O2(CT) 12.5 mL/dL (15.0-23.0); PCO2(98.6) 31 mmHg (35-45); PO2(98.6) 66 mmHg (60-100); SAMPLE BLOOD; THB 9.9 g/dL (11.5-17.4); pH(98.6) 7.33 (7.35-7.45)
[2016-11-06 18:00] LABS: MODALITY PRB
[2016-11-06] MEDS: LIPITOR PO SCH (22:33)
--- NOTE | 2016-11-06 23:21 | CONSULTATION ---
DATE OF CONSULTATION: 09/06/2016 REQUESTING PHYSICIAN: Dr. Mcdaniels. REASON FOR CONSULTATION: Respiratory failure. HISTORY OF PRESENT ILLNESS: Ms Beyer is a 66-year-old white female with COPD, ongoing tobacco use, history of TIA, who was brought to the emergency room with shortness of breath and lethargy, along with mild hypoxemic respiratory failure. She was had significant hyponatremia upon presentation with a serum sodium of 113. Her magnesium was also significantly low. She had a chest x-ray which revealed shallow inspiration, but no definite infiltrates. She has been initiated on fluids and has been followed by the salesperson trailers and motor homes. Renal ultrasound was relatively unremarkable. The patient has had some changes in mental status during this hospitalization, but the nurse has found several different pills and prescriptions, which were subsequent confiscated from the patient. The patient's oxygen requirements markedly increased today, and a pulmonary consultation was requested. PAST MEDICAL HISTORY: 1. COPD with ongoing tobacco use. 2. History of prior left hip fracture with surgical repair. 3. Dyslipidemia. 4. Status post tonsillectomy. 5. Status post hysterectomy. 6. Chronic pain syndrome. 7. Recurrent episodes of hyponatremia. FAMILY HISTORY: Positive for diabetes in her mother. SOCIAL HISTORY: Patient has a 30+ pack year history for tobacco. No alcohol use. REVIEW OF SYSTEMS: Difficult given patient's altered mental status. PHYSICAL EXAMINATION: General: Reveals a chronically ill-appearing, white female, who appears her stated age. Vital Signs: BP 102/61, heart rate 103, respiratory rate 22, with mild work of breathing. Oxygen saturation 94% on nonrebreather. HEENT: Pupils are equal and reactive. Oropharynx is clear. Neck: Supple. Chest: Reveals scattered crackles bilaterally. Cardiac: Regular rate, normal S1, normal S2. Abdomen: Soft without hepatosplenomegaly. Extremities: Without edema. LABORATORIES: Chest x-ray reveals new diffuse bilateral infiltrates. White blood count elevated at 31,000, hemoglobin 9.1. Microbiology reveals a gram-negative jo-ann in her urine. Previous urine in June revealed a gram-negative jo-ann, which was E. coli, which was pansensitive and not an ESBL E. Coli. IMPRESSION: A 66-year-old with COPD, ongoing tobacco use, who now has diffuse bilateral infiltrates with hypoxemic respiratory failure and leukocytosis. The patient has a hospital acquired pneumonia, which may be related to an aspiration event associated with her surreptitious use of pills during this hospitalization, or could be an ARDS like picture associated with her E. coli. RECOMMENDATIONS: 1. Continue high concentration oxygen to maintain saturation greater than 90%. 2. Continue current antibiotic regimen. 3. Anticipate transfer to the intensive care unit, if she has a clinical decline. 4. Additional recommendations pending hospital course.
[2016-11-07] MEDS: NS 1,000 ML IV SCH ×3 (00:29→17:17)
[2016-11-07] MEDS: SOLU-MEDROL IV SCH ×3 (01:19→17:17)
[2016-11-07] MEDS: TAZIDIME 1 GM in NS 50 ML IV SCH (06:08)
[2016-11-07 06:13] LABS: HEMATOCRIT 27.9 % (37.0-47.0); HEMOGLOBIN 9.6 g/dL (12.0-16.0); IMM GRAN# 0.09 X1000 (0.0-0.04); IMM GRAN% 0.3 % (0.0-0.5); LYMPH# 0.34 X1000 (1.2-3.4); LYMPH% 1.2 % (20.5-51.1); MANUAL DIFF NEEDED? YES; MCH 30.1 PG (27-31); MCHC 34.4 g/dL (33-37); MCV 87.5 FL (81-99); MONO# 0.34 X1000 (0.11-0.59); MONO% 1.2 % (1.7-9.3); MPV 10.3 FL (7.4-10.4); NEUT% 97.3 % (42.2-75.2); PLT 347 X1000 (130-400); RBC 3.19 XMIL (4.2-5.4)
[2016-11-07 06:15] LABS: LYMPHS 2 % (21-51)
[2016-11-07 06:56] LABS: CALCIUM 8.4 mg/dL (8.8-10.2); POTASSIUM 4.3 mmol/L (3.5-5.1)
--- NOTE | 2016-11-07 07:56 | Diag Imaging Result Document ---
PROCEDURE NAME: CHEST-PORTABLE - 11/06/2016 PORTABLE CHEST X-RAY: COMPARISON: 11/04/2016. FINDINGS: There is significant worsening in diffuse infiltrate throughout the left lung, and multilobar infiltrate on the right side, worst at the upper lobe. No pneumothorax or large effusion. Heart size remains normal. IMPRESSION: Significant worsening, severe bilateral infiltrates.
[2016-11-07] MEDS: FORTICAL NAS SCH (08:11)
[2016-11-07] MEDS: ASPIRIN PO SCH (08:11)
[2016-11-07] MEDS: VALIUM PO SCH (08:11)
[2016-11-07] MEDS: KLOR-CON PO SCH (08:11)
[2016-11-07] MEDS: LOPRESSOR PO SCH ×2 (08:11→21:12)
[2016-11-07] MEDS: PROTONIX PO SCH (08:27)
--- NOTE | 2016-11-07 08:27 | Diag Imaging Result Document ---
PROCEDURE NAME: KUIliana ABDOMEN - 11/06/2016 ABDOMEN: COMPARISON: None. FINDINGS: There is mild diffuse gas distention of the small bowel, but no abnormally distended loops. There is a left hip prosthesis. There is some stool in the ascending colon. IMPRESSION: Slightly abnormal but nonspecific bowel gas pattern.
[2016-11-07] MEDS: DUONEB (A & A) INH PRN ×4 (08:36→22:20)
[2016-11-07] MEDS: LEVAQUIN 750 MG/D5W 150 ML IV SCH (09:31)
--- NOTE | 2016-11-07 09:42 | Diag Imaging Result Document ---
PROCEDURE NAME: CHEST-PORTABLE - 11/07/2016 PORTABLE CHEST X-RAY: COMPARISON: 11/06/2016. FINDINGS: There is continued worsening in the bilateral diffuse infiltrates throughout the lungs. Heart size remains top normal. IMPRESSION: Continued worsening.
--- NOTE | 2016-11-07 09:59 | PROGRESS NOTE ---
DATE: 11/07/2016 SUBJECTIVE: The patient currently sitting up in bed. She is awake and alert, asking appropriate questions today. OBJECTIVE: Vital Signs: Temperature 97.6 degrees. Pulse 98. Respiratory rate 32. Blood pressure 126/75. Intake and Output: Intake 2.6 L. Output 2.6 L. PHYSICAL EXAMINATION: General: This is an elderly female, resting in bed. She is awake and alert today, asking appropriate questions. HEENT: Normocephalic. Atraumatic. Oral mucosa moist. Neck: Supple without JVD. Cardiovascular: Regular rate and rhythm. No murmur or gallop appreciated. Pulmonary: She has equal excursion. She is clear bilaterally today. She has no increased work of breathing. Abdomen: Soft, with positive bowel sounds. : She has a Bass catheter with dark, yellow urine noted. Extremities: There is no clubbing, cyanosis, or edema. Integumentary: Skin is warm and dry without other rash or lesion. LAB DATA: WBC of 28.7. Hemoglobin 9.6. Hematocrit 27.9. Platelet count of 347,000. Sodium 128. Potassium 4.3. CO2 of 17. BUN 20. Creatinine 1.0. Calcium 8.4. ASSESSMENT AND PLAN: 1. Acute kidney injury with recovery. Continue current treatment. We will make no changes and will sign off at this time. 2. Electrolytes. Hyponatremia is acceptable. Her hydrochlorothiazide has continued held and her urine output and intake have been equal. 3. Urinary tract infection followed by primary. Dictated by LAUREN Salguero for Ariel Farr MD
[2016-11-07] MEDS: DIFLUCAN IV SCH (11:05)
[2016-11-07] MEDS: NS IV SCH (11:05)
[2016-11-07] MEDS: LABETALOL IV PRN (12:00)
[2016-11-07] MEDS: NORVASC PO SCH (12:00)
[2016-11-07] MEDS: PERCOCET-10 PO PRN ×2 (12:56→21:12)
[2016-11-07] MEDS: LIPITOR PO SCH (21:12)
[2016-11-07] MEDS ORDERED: LASIX IV ONE (21:23)
[2016-11-07] MEDS ORDERED: VANCOMYCIN 1,200 MG in NS 250 ML IV SCH (23:00)
[2016-11-08] MEDS: SOLU-MEDROL IV SCH ×4 (01:36→23:46)
[2016-11-08] MEDS: NS 1,000 ML IV SCH ×2 (03:18→14:04)
[2016-11-08 04:16] LABS: ALLEN TEST YES; BE 4.8 mmoll (-3.0-3.0); BLOOD TYPE ARTERIAL; DRAW SITE R BRACHIAL; METHB 1.4 % (0.0-1.5); O2(CT) 16.3 mL/dL (15.0-23.0); PCO2(98.6) 36 mmHg (35-45); PO2(98.6) 152 mmHg (60-100); SAMPLE BLOOD; SAO2 95.6 % (95.0-100.0); THB 12.1 g/dL (11.5-17.4)
[2016-11-08 04:18] LABS: MODALITY PRB
[2016-11-08] MEDS: PROTONIX PO SCH (06:18)
[2016-11-08 06:19] LABS: AGAP 14; BUN 15 mg/dL (8-22); CALCIUM 8.3 mg/dL (8.8-10.2); CHLORIDE 93 mmol/L (98-107); COSMO 267; POTASSIUM 3.5 mmol/L (3.5-5.1); SODIUM 131 mmol/L (136-145); TCO2 24 mmol/L (25-35)
--- NOTE | 2016-11-08 06:39 | Diag Imaging Result Document ---
PROCEDURE NAME: CHEST-PORTABLE - 11/08/2016 PORTABLE CHEST: COMPARISON: 11/07/2016. FINDINGS: There are diffuse bilateral infiltrates. These are less dense than on the prior exam. Heart is not enlarged. No pleural effusions identified. The patient is rotated to the right. IMPRESSION: Interval improvement in the bilateral infiltrate.
[2016-11-08] MEDS: ASPIRIN PO SCH ×2 (07:50→08:03)
[2016-11-08] MEDS: LEVAQUIN 750 MG/D5W 150 ML IV SCH (07:50)
[2016-11-08] MEDS: NORVASC PO SCH ×2 (07:51→08:03)
[2016-11-08] MEDS: FORTICAL NAS SCH ×2 (07:51→08:03)
[2016-11-08] MEDS: KLOR-CON PO SCH ×2 (07:51→08:03)
[2016-11-08] MEDS: LOPRESSOR PO SCH ×3 (07:51→21:46)
[2016-11-08] MEDS: VALIUM PO SCH (08:03)
[2016-11-08] MEDS: LABETALOL IV PRN (08:14)
[2016-11-08] MEDS: DUONEB (A & A) INH PRN ×2 (09:27→15:36)
[2016-11-08] MEDS ORDERED: VANCOMYCIN 1 GM/NS 250 ML IV SCH (11:00)
--- NOTE | 2016-11-08 11:28 | PROGRESS NOTE ---
DATE: 11/08/2016 SUBJECTIVE: She states she is feeling some better. Shortness of breath is improved. OBJECTIVE: Vital Signs: Blood pressure 170/80. Heart rate 78. Respirations 19. Afebrile. Intake and Output: Intake 2.1 L. Output 5.3 L. PHYSICAL EXAMINATION: General: No acute distress. Skin: Warm and dry. Eyes: Conjunctivae are pink. Neck: Neck veins are not distended. Heart: Regular. Lungs: Equal breath sounds. No crackles. Abdomen: Soft, nontender. Bowel sounds are present. Extremities: No edema, clubbing, or cyanosis. LABORATORY DATA: Sodium 131. Potassium 3.5. Chloride 93. Bicarbonate 24. BUN 15. Creatinine 0.8. Hemoglobin 9.6. IMPRESSION: 1. Acute kidney injury, resolved. 2. Hyponatremia, progressively resolving. I will sign off. If I can be of further assistance, please do not hesitate to call.
[2016-11-08] MEDS: LASIX IV SCH ×2 (14:04→21:46)
[2016-11-08] MEDS: PERCOCET-10 PO PRN ×2 (15:52→21:46)
[2016-11-08] MEDS: LIPITOR PO SCH (21:46)
[2016-11-08] MEDS: VANCOMYCIN 1,000 MG in NS 250 ML IV SCH (23:46)
[2016-11-09] MEDS: DUONEB (A & A) INH PRN (03:20)
[2016-11-09] MEDS: NS 1,000 ML IV SCH ×2 (04:31→15:42)
[2016-11-09 04:54] LABS: ALLEN TEST YES; BE 5.6 mmoll (-3.0-3.0); BLOOD TYPE ARTERIAL; DRAW SITE L RADIAL; METHB 1.2 % (0.0-1.5); O2(CT) 14.8 mL/dL (15.0-23.0); PCO2(98.6) 35 mmHg (35-45); PO2(98.6) 55 mmHg (60-100); SAMPLE BLOOD; SAO2 88.1 % (95.0-100.0); THB 12.1 g/dL (11.5-17.4); pH(98.6) 7.52 (7.35-7.45)
[2016-11-09 04:55] LABS: MODALITY CANNULA
[2016-11-09 06:01] LABS: BASO% 0.1 % (0.0-0.8); HEMATOCRIT 28.7 % (37.0-47.0); HEMOGLOBIN 9.9 g/dL (12.0-16.0); IMM GRAN# 0.09 X1000 (0.0-0.04); IMM GRAN% 0.5 % (0.0-0.5); LYMPH# 0.61 X1000 (1.2-3.4); LYMPH% 3.6 % (20.5-51.1); MANUAL DIFF NEEDED? YES; MCH 29.6 PG (27-31); MCHC 34.5 g/dL (33-37); MCV 85.7 FL (81-99); MPV 10.2 FL (7.4-10.4); NEUT% 92.8 % (42.2-75.2); PLT 282 X1000 (130-400); RBC 3.35 XMIL (4.2-5.4)
[2016-11-09 06:11] LABS: CALCIUM 7.9 mg/dL (8.8-10.2); POTASSIUM 3.1 mmol/L (3.5-5.1)
[2016-11-09] MEDS: PROTONIX PO SCH (06:19)
[2016-11-09] MEDS: LASIX IV SCH (06:20)
[2016-11-09 08:01] LABS: BANDS 6 % (0-1); LYMPHS 4 % (21-51); MONO 4 % (1-9)
--- NOTE | 2016-11-09 08:27 | PROGRESS NOTE ---
DATE: 11/09/2016 SUBJECTIVE: A 66-year-old white female patient, admitted with allergy, shortness of breath, mental status change. Patient did have cough, chest congestion, found to be hyponatremic and also had hypomagnesemia. Admission history physical noted. Pulmonary and nephrology consult noted. The patient does have cough, mild chest congestion. Her hyponatremia is improving. The patient is complaining of significant diarrhea. She is not sure about blood or mucus in the stool. Oral intake is fair. No high-grade fever or chills. The patient is at times requiring higher concentration of oxygen. Known case of hypertension, hyperlipidemia, COPD, osteoarthritis, osteoporosis, fibromyalgia, CVA, left hip fracture. OBJECTIVE: Vital Signs: Her vital signs noted. Neck: Supple. No JVD. Lungs: Bibasilar crepitations. Occasional wheezing. CVS: S1 and S2 heard. Abdomen: Soft, scaphoid. Bowel sounds present. Extremities: No cyanosis, clubbing. No acute DVT. BLEACH CHLORINATOR: Alert, awake, able to move all 4 limbs. LAB DATA: Done today did reveal leukocytosis, though it is improving. WBC count 16.91, hemoglobin 9.9, hematocrit 28.7, platelets 282. Blood gas: A pH 7.52, pCO2 35, PO2 was 55. This was done on 3 L via nasal cannula. Her potassium was 3.1. BUN 18 and creatinine was 1. Sodium 131. CONSIDERATION: 1. Respiratory failure. Will continue oxygen, bronchodilator treatment. Power System Dispatcher following patient with us. 2. Hypokalemia. Will supplement potassium. I will also check magnesium. OTHER PROBLEMS: 1. Acute kidney injury. Her renal function improved. 2. Chronic pain syndrome. 3. Diarrhea. I am going to check stool workup. 4. Urinary tract infection due to Escherichia coli. On antibiotics. PLAN: Labs and medication noted. Overall plan discussed with the patient and she is in agreement.
[2016-11-09] MEDS: LEVAQUIN 750 MG/D5W 150 ML IV SCH (08:58)
[2016-11-09] MEDS: SOLU-MEDROL IV SCH ×2 (09:00→15:42)
[2016-11-09] MEDS: ASPIRIN PO SCH (09:01)
[2016-11-09] MEDS: LOPRESSOR PO SCH ×2 (09:01→21:25)
[2016-11-09] MEDS: NORVASC PO SCH (09:01)
[2016-11-09] MEDS: FORTICAL NAS SCH (09:04)
[2016-11-09] MEDS: VALIUM PO SCH (09:15)
[2016-11-09] MEDS: KLOR-CON PO SCH ×2 (09:16→21:25)
[2016-11-09] MEDS: PERCOCET-10 PO PRN ×2 (12:13→18:29)
[2016-11-09] MEDS ORDERED: POTASSIUM PHOSPHATE 15 MMOL in NS 250 ML IV ONE (12:50)
[2016-11-09] MEDS ORDERED: MAGNESIUM SULFATE 2 GM/S.W.I. 50 ML IV ONE (13:43)
--- NOTE | 2016-11-09 15:35 | Diag Imaging Result Document ---
PROCEDURE NAME: CHEST-1 VIEW - 11/09/2016 AP PORTABLE CHEST: TIME: 1500 hours. FINDINGS: There is a reticulonodular interstitial pattern, as was the case on the previous study of 11/08/2016 but worse than on 08/11/2016. There may also be some increase in generalized opacity over the right upper lobe compared to previous studies. Some of this may be due to relative suboptimal inspiration. IMPRESSION: Bronchopneumonia, particularly in the right upper lobe with possible superimposed interstitial pulmonary edema.
[2016-11-09] MEDS: LIPITOR PO SCH (21:25)
[2016-11-10] MEDS: PERCOCET-10 PO PRN ×4 (00:15→23:41)
[2016-11-10] MEDS: NS 1,000 ML IV SCH ×3 (00:16→17:42)
[2016-11-10] MEDS: SOLU-MEDROL IV SCH ×4 (00:19→23:42)
[2016-11-10] MEDS: VANCOMYCIN 1,000 MG in NS 250 ML IV SCH (00:23)
[2016-11-10] MEDS: PROTONIX PO SCH (06:13)
[2016-11-10 06:47] LABS: BASO% 0.1 % (0.0-0.8); HEMATOCRIT 27.7 % (37.0-47.0); HEMOGLOBIN 9.6 g/dL (12.0-16.0); IMM GRAN# 0.14 X1000 (0.0-0.04); IMM GRAN% 0.8 % (0.0-0.5); LYMPH% 3.2 % (20.5-51.1); MANUAL DIFF NEEDED? YES; MCH 29.8 PG (27-31); MCHC 34.7 g/dL (33-37); MONO# 0.39 X1000 (0.11-0.59); MONO% 2.1 % (1.7-9.3); NEUT% 93.8 % (42.2-75.2); PLT 276 X1000 (130-400); RBC 3.22 XMIL (4.2-5.4)
[2016-11-10 07:04] LABS: AGAP 15; ALBUMIN 2.5 g/dL (3.5-5.0); ALKALINE PHOSPHATASE 94 U/L (32-104); BUN 16 mg/dL (8-22); CALCIUM 7.6 mg/dL (8.8-10.2); CHLORIDE 89 mmol/L (98-107); COSMO 265; GOT 28 U/L (10-30); GPT 16 U/L (10-36); POTASSIUM 3.6 mmol/L (3.5-5.1); SODIUM 130 mmol/L (136-145); TCO2 26 mmol/L (25-35); TOTAL BILIRUBIN 0.58 mg/dL (0.20-1.00); TOTAL PROTEIN 5.2 g/dL (6.3-8.3)
[2016-11-10 08:16] LABS: BANDS 4 % (0-1); LYMPHS 4 % (21-51)
[2016-11-10 08:17] LABS: HYPOCHROM 1+
[2016-11-10] MEDS: ASPIRIN PO SCH (08:57)
[2016-11-10] MEDS: KLOR-CON PO SCH ×2 (08:57→20:33)
[2016-11-10] MEDS: NORVASC PO SCH (08:57)
[2016-11-10] MEDS: LOPRESSOR PO SCH ×2 (08:57→20:33)
[2016-11-10] MEDS: FORTICAL NAS SCH (08:59)
[2016-11-10] MEDS: LEVAQUIN 750 MG/D5W 150 ML IV SCH (09:01)
[2016-11-10] MEDS ORDERED: LASIX IV ONE (09:04)
--- NOTE | 2016-11-10 09:33 | PROGRESS NOTE ---
DATE: 11/10/2016 SUBJECTIVE: Ms. Beyer is doing fair. The patient does feel weak, though she is afebrile. She does have diarrhea off and on. I did stool workup. Stool for C. difficile toxin was negative but the patient had some WBC in the stool. The patient is getting treatment for E. coli UTI. She denied any chest pain. No nausea, vomiting. Oral intake poor. No typical chest pain. PHYSICAL EXAMINATION: Vital Signs: Her vital signs reviewed. Lungs: Bibasilar crepitations. Heart: S1 and S2 heard. Abdomen: Soft, globular. Bowel sounds present. Vague tenderness, left colonic area and epigastrium. No guarding or rigidity. Extremities: No cyanosis, clubbing. No acute DVT. RECEIVER DISPATCHER: Alert, awake. Able to move all 4 limbs. LAB DATA: Done today, leukocyte count 18.52, hemoglobin 9.6, hematocrit 27.7, platelet count 276,000. The patient does have 4 bands.
[2016-11-10] MEDS: DUONEB (A & A) INH PRN ×2 (09:47→20:06)
[2016-11-10 10:14] LABS: MAGNESIUM 1.6 mg/dL (1.5-2.7)
[2016-11-10] MEDS: FLAGYL 500 MG/NS 100 ML IV SCH ×2 (11:18→18:03)
[2016-11-10] MEDS ORDERED: POTASSIUM PHOSPHATE 15 MMOL in NS 250 ML IV ONE (12:27)
[2016-11-10] MEDS: VALIUM PO SCH (14:34)
[2016-11-10] MEDS: LIPITOR PO SCH (20:33)
[2016-11-11] MEDS: VANCOMYCIN 1,200 MG in NS 250 ML IV SCH (00:56)
[2016-11-11] MEDS: LABETALOL IV PRN (04:54)
[2016-11-11] MEDS: FLAGYL 500 MG/NS 100 ML IV SCH ×3 (04:54→20:30)
[2016-11-11] MEDS: NS 1,000 ML IV SCH ×3 (04:55→14:34)
[2016-11-11 06:26] LABS: BASO% 0.1 % (0.0-0.8); HEMATOCRIT 28.4 % (37.0-47.0); HEMOGLOBIN 9.7 g/dL (12.0-16.0); IMM GRAN# 0.11 X1000 (0.0-0.04); IMM GRAN% 0.6 % (0.0-0.5); LYMPH# 0.72 X1000 (1.2-3.4); MANUAL DIFF NEEDED? YES; MCH 29.7 PG (27-31); MCHC 34.2 g/dL (33-37); MCV 86.9 FL (81-99); MONO# 0.34 X1000 (0.11-0.59); MONO% 1.9 % (1.7-9.3); MPV 10.2 FL (7.4-10.4); NEUT% 93.4 % (42.2-75.2); PLT 263 X1000 (130-400); RBC 3.27 XMIL (4.2-5.4)
[2016-11-11] MEDS: PERCOCET-10 PO PRN ×3 (06:26→20:31)
[2016-11-11] MEDS: PROTONIX PO SCH (06:28)
[2016-11-11 06:49] LABS: AGAP 12; ALBUMIN 2.7 g/dL (3.5-5.0); ALKALINE PHOSPHATASE 92 U/L (32-104); BUN 15 mg/dL (8-22); CALCIUM 7.8 mg/dL (8.8-10.2); CHLORIDE 91 mmol/L (98-107); COSMO 263; GOT 28 U/L (10-30); GPT 16 U/L (10-36); POTASSIUM 4.2 mmol/L (3.5-5.1); SODIUM 130 mmol/L (136-145); TCO2 27 mmol/L (25-35); TOTAL BILIRUBIN 0.64 mg/dL (0.20-1.00); TOTAL PROTEIN 5.2 g/dL (6.3-8.3)
[2016-11-11 07:11] LABS: HYPOCHROM 1+; LYMPHS 2 % (21-51); MONO 2 % (1-9)
[2016-11-11] MEDS: KLOR-CON PO SCH ×2 (08:50→20:31)
[2016-11-11] MEDS: SOLU-MEDROL IV SCH ×2 (08:51→17:01)
[2016-11-11] MEDS: NORVASC PO SCH (08:52)
[2016-11-11] MEDS: FORTICAL NAS SCH (08:53)
[2016-11-11] MEDS: ASPIRIN PO SCH (08:53)
[2016-11-11] MEDS: LOPRESSOR PO SCH ×2 (08:53→20:31)
[2016-11-11] MEDS: LEVAQUIN 750 MG/D5W 150 ML IV SCH (09:00)
[2016-11-11] MEDS: VALIUM PO SCH (09:15)
--- NOTE | 2016-11-11 12:38 | PROGRESS NOTE ---
DATE: 11/11/2016 SUBJECTIVE: Ms. Beyer is in for days. She is recovering from bilateral pneumonia. Chest x-ray showed some improvement. OBJECTIVE: Vital signs are stable. She continues to have some pulmonary congestion. ASSESSMENT/PLAN: We will repeat the chest x-ray, and the blood work in the morning. Her magnesium was 1.0, which has come up now. -3
[2016-11-11] MEDS ORDERED: LASIX IV ONE (16:55)
[2016-11-11] MEDS: PREDNISONE PO SCH (18:04)
[2016-11-11] MEDS: LIPITOR PO SCH (20:31)
[2016-11-11] MEDS: VITAMIN D PO SCH (20:31)
[2016-11-11] MEDS: DUONEB (A & A) INH PRN (23:05)
[2016-11-12] MEDS: VANCOMYCIN 1,200 MG in NS 250 ML IV SCH (01:20)
[2016-11-12] MEDS: PERCOCET-10 PO PRN ×4 (02:54→22:33)
[2016-11-12] MEDS: FLAGYL 500 MG/NS 100 ML IV SCH ×4 (02:58→21:08)
[2016-11-12] MEDS: LABETALOL IV PRN ×2 (04:27→10:22)
[2016-11-12] MEDS: PROTONIX PO SCH ×2 (05:33→06:31)
[2016-11-12 06:24] LABS: AGAP 13; BUN 14 mg/dL (8-22); CALCIUM 7.7 mg/dL (8.8-10.2); CHLORIDE 89 mmol/L (98-107); COSMO 261; MAGNESIUM 1.1 mg/dL (1.5-2.7); POTASSIUM 3.9 mmol/L (3.5-5.1); SODIUM 130 mmol/L (136-145); TCO2 28 mmol/L (25-35)
--- NOTE | 2016-11-12 07:12 | PROGRESS NOTE ---
DATE: 11/10/2016 ADDENDUM/COMPLETION: CONSIDERATION: 1. Aspiration pneumonia. 2. Respiratory failure. 3. Hypomagnesemia and hypophosphatemia, status post supplement. I am going to check those electrolytes again today. 4. The patient does have leukocytosis with bandemia. Stool shows some WBC. I am going to add Flagyl. 5. The patient had diarrhea. 6. Urinary tract infection due to Escherichia coli. The patient is on broad-spectrum antibiotics. 7. I am going to start physical therapy for generalized muscular strengthening. 8. Will repeat blood work in the morning. PLAN: Overall plan discussed with the patient. She is in agreement.
--- NOTE | 2016-11-12 08:18 | Diag Imaging Result Document ---
PROCEDURE NAME: CHEST-2 VIEWS - 11/12/2016 CHEST X-RAY 2 VIEWS, 11/12/2016: COMPARISON: 11/09/2016. FINDINGS: The ill-defined bilateral infiltrates with upper lobe predominance have essentially resolved. Stable high-grade compression fracture in the upper thoracic spine. There are trace pleural effusions. Heart size is normal. IMPRESSION: Pronounced improvement from prior.
[2016-11-12] MEDS: LOPRESSOR PO SCH ×2 (08:20→21:08)
[2016-11-12] MEDS: ASPIRIN PO SCH (08:20)
[2016-11-12] MEDS: FORTICAL NAS SCH (08:20)
[2016-11-12] MEDS: VALIUM PO SCH (08:20)
[2016-11-12] MEDS: KLOR-CON PO SCH ×2 (08:20→21:08)
[2016-11-12] MEDS: NORVASC PO SCH (08:20)
[2016-11-12] MEDS: PREDNISONE PO SCH (08:20)
[2016-11-12] MEDS: LEVAQUIN 750 MG/D5W 150 ML IV SCH (08:20)
[2016-11-12] MEDS: MAG-OX PO SCH ×2 (08:44→21:08)
--- NOTE | 2016-11-12 09:06 | PROGRESS NOTE ---
DATE: 11/12/2016 Ms. Beyer is in about the same general condition. Magnesium is still 1.1. She still has some pulmonary congestion. We repeated a chest x-ray on her. Overall condition is otherwise unchanged. We will continue with the current management. -9
[2016-11-12 10:54] LABS: INR 1.06; PROTIME 11.2 Seconds (9.2-11.7)
[2016-11-12] MEDS ORDERED: NS 250 ML ONE (14:53)
[2016-11-12] MEDS ORDERED: LASIX IV ONE (21:02)
[2016-11-12] MEDS: LIPITOR PO SCH (21:08)
[2016-11-13] MEDS: VANCOMYCIN 1,200 MG in NS 250 ML IV SCH (00:36)
[2016-11-13] MEDS: DUONEB (A & A) INH PRN ×2 (03:28→16:00)
[2016-11-13] MEDS: FLAGYL 500 MG/NS 100 ML IV SCH ×3 (03:38→23:23)
[2016-11-13] MEDS: PERCOCET-10 PO PRN ×3 (04:31→16:52)
[2016-11-13 05:05] LABS: ALLEN TEST YES; BE 5.6 mmoll (-3.0-3.0); BLOOD TYPE ARTERIAL; DRAW SITE R RADIAL; METHB 1.2 % (0.0-1.5); O2(CT) 12.7 mL/dL (15.0-23.0); PCO2(98.6) 33 mmHg (35-45); PO2(98.6) 69 mmHg (60-100); SAMPLE BLOOD; SAO2 92.7 % (95.0-100.0); THB 9.8 g/dL (11.5-17.4); pH(98.6) 7.54 (7.35-7.45)
[2016-11-13 05:07] LABS: MANUAL DIFF NEEDED? NO
[2016-11-13 05:10] LABS: MODALITY CANNULA
[2016-11-13 05:13] LABS: BASO% 0.1 % (0.0-0.8); EOS# 0.11 X1000 (0.0-0.7); EOS% 0.8 % (0.0-10.0); HEMATOCRIT 28.1 % (37.0-47.0); HEMOGLOBIN 9.4 g/dL (12.0-16.0); IMM GRAN# 0.09 X1000 (0.0-0.04); IMM GRAN% 0.6 % (0.0-0.5); LYMPH# 2.54 X1000 (1.2-3.4); LYMPH% 17.6 % (20.5-51.1); MCH 29.3 PG (27-31); MCHC 33.5 g/dL (33-37); MCV 87.5 FL (81-99); MONO# 0.66 X1000 (0.11-0.59); MONO% 4.6 % (1.7-9.3); MPV 9.7 FL (7.4-10.4); NEUT% 76.3 % (42.2-75.2); PLT 265 X1000 (130-400); RBC 3.21 XMIL (4.2-5.4)
[2016-11-13 05:41] LABS: AGAP 13; BUN 15 mg/dL (8-22); CALCIUM 7.3 mg/dL (8.8-10.2); CHLORIDE 89 mmol/L (98-107); COSMO 262; SODIUM 130 mmol/L (136-145); TCO2 28 mmol/L (25-35)
[2016-11-13] MEDS: PROTONIX PO SCH (05:59)
[2016-11-13] MEDS: LEVAQUIN 750 MG/D5W 150 ML IV SCH ×2 (07:35→08:59)
[2016-11-13] MEDS: LOPRESSOR PO SCH ×2 (08:57→23:23)
[2016-11-13] MEDS: VALIUM PO SCH (08:57)
[2016-11-13] MEDS: KLOR-CON PO SCH ×2 (08:57→23:21)
[2016-11-13] MEDS: MAG-OX PO SCH ×2 (08:57→23:21)
[2016-11-13] MEDS: ASPIRIN PO SCH (08:57)
[2016-11-13] MEDS: FORTICAL NAS SCH (08:58)
[2016-11-13] MEDS: NORVASC PO SCH (08:58)
[2016-11-13] MEDS: PREDNISONE PO SCH (08:58)
--- NOTE | 2016-11-13 09:43 | PROGRESS NOTE ---
DATE: 11/13/2016 Ms. Beyer is doing somewhat better. I checked with her again about going to rehab which she refuses. She is still very weak. Her chest x-ray shows improvement. I am going to repeat another chest x-ray tomorrow morning. White count has come down to 14.41. Hemoglobin was 9.4. Electrolytes still reveal hyponatremia, sodium 130. Overall condition is much improved. We will continue with the current management. She had a PICC line yesterday.
[2016-11-13] MEDS: LIPITOR PO SCH (23:22)
[2016-11-14] MEDS: VANCOMYCIN 1,200 MG in NS 250 ML IV SCH (02:51)
[2016-11-14] MEDS: PERCOCET-10 PO PRN ×3 (06:05→18:51)
[2016-11-14] MEDS: PROTONIX PO SCH (06:10)
[2016-11-14] MEDS: FLAGYL 500 MG/NS 100 ML IV SCH ×2 (07:28→15:56)
[2016-11-14] MEDS: LEVAQUIN 750 MG/D5W 150 ML IV SCH (08:36)
[2016-11-14] MEDS: FORTICAL NAS SCH (08:38)
[2016-11-14] MEDS: NORVASC PO SCH (08:39)
[2016-11-14] MEDS: KLOR-CON PO SCH ×2 (08:39→21:16)
[2016-11-14] MEDS: VALIUM PO SCH (08:39)
[2016-11-14] MEDS: MAG-OX PO SCH ×2 (08:39→21:16)
[2016-11-14] MEDS: PREDNISONE PO SCH (08:39)
[2016-11-14] MEDS: ASPIRIN PO SCH (08:39)
[2016-11-14] MEDS: LOPRESSOR PO SCH ×2 (08:39→21:16)
--- NOTE | 2016-11-14 08:41 | Diag Imaging Result Document ---
PROCEDURE NAME: CHEST-PORTABLE - 11/14/2016 PORTABLE CHEST X-RAY: COMPARISON: 11/12/2016. FINDINGS: There is a new right PICC line in good position with the catheter tip at the lower SVC. The lungs are clear. Heart size is normal. No pneumothorax or significant effusion. IMPRESSION: No acute disease.
--- NOTE | 2016-11-14 09:33 | PROGRESS NOTE ---
DATE: 11/14/2016 Ms. Beyer is improving. Physical therapy is helping her to get out of bed. We have a repeat chest x-ray. If the x-ray is better, we will discharge her tomorrow. -9
[2016-11-14] MEDS: LIPITOR PO SCH (21:16)
[2016-11-15] MEDS: PERCOCET-10 PO PRN ×2 (01:49→08:26)
[2016-11-15] MEDS: PROTONIX PO SCH (06:20)
[2016-11-15 08:11] VITALS: BP 115/68
[2016-11-15 08:18] LABS: ALLEN TEST YES; BE 4.1 mmoll (-3.0-3.0); BLOOD TYPE ARTERIAL; DRAW SITE R RADIAL; METHB 1.2 % (0.0-1.5); O2(CT) 12.8 mL/dL (15.0-23.0); PCO2(98.6) 33 mmHg (35-45); PO2(98.6) 64 mmHg (60-100); SAMPLE BLOOD; pH(98.6) 7.52 (7.35-7.45)
[2016-11-15 08:19] LABS: MODALITY ROOM AIR
[2016-11-15] MEDS: FORTICAL NAS SCH (08:23)
[2016-11-15] MEDS: VALIUM PO SCH (08:24)
[2016-11-15] MEDS: LOPRESSOR PO SCH (08:24)
[2016-11-15] MEDS: KLOR-CON PO SCH (08:25)
[2016-11-15] MEDS: MAG-OX PO SCH (08:27)
[2016-11-15] MEDS: NORVASC PO SCH (08:27)
[2016-11-15] MEDS: PREDNISONE PO SCH (08:27)
[2016-11-15] MEDS: ASPIRIN PO SCH (08:28)
--- NOTE | 2016-11-15 09:43 | PROGRESS NOTE ---
DATE: 11/15/2016 Ms. Beyer is feeling better. Chest x-ray showed almost complete clearing of pneumonia. We will continue with the current management. -7
--- NOTE | 2016-11-15 21:27 | DISCHARGE SUMMARY ---
ADMISSION DATE: 11/04/2016 DISCHARGE DATE: 11/15/2016 HOSPITAL COURSE: Ms. Beyer is a 66-year-old, white female, who was admitted with altered mental status. She has severe hyponatremia. She also had bilateral pneumonia when she came in. Her laboratory data revealed her initial white count was 31,000, final white count is 14.41. INR was 1.13. Blood gases revealed pCO2 of 24 which went up to 33 and oxyhemoglobin was also low. The initial sodium when she came in was 130, it went down to 108, BUN was 22, creatinine was 2.4. Final sodium was 130, BUN was 15, creatinine 0.92. Urinalysis was negative. Initially urinalysis revealed too numerous WBCs and RBCs. Vancomycin levels are therapeutic. Microbiology: Urine culture grew E. coli. Blood cultures were negative. CD4 was negative. In the hospital she was treated for hyponatremia and pneumonia. different antibiotics. She continued to improve. She was very weak. Physical Therapy help was obtained. General condition improved and we decided to send her home. We offered her home health care but she refused. FINAL DIAGNOSES: 1. Altered mental status. 2. Bilateral pneumonia. 3. Acute respiratory distress. 4. Severe hyponatremia.
== END 2016-11-15 11:39 | disposition home health service (06) | DRG 682 ==
LOC: EDBD → ED 15:21 → 4N 21:20
PROVIDERS: ADMIT Internal Medicine; ATTEND Internal Medicine
DX: N17.9 Acute kidney failure, unspecified (principal); J96.91 Respiratory failure, unspecified with hypoxia; J18.9 Pneumonia, unspecified organism; M32.9 Systemic lupus erythematosus, unspecified; E87.1 Hypo-osmolality and hyponatremia; J44.9 Chronic obstructive pulmonary disease, unspecified; J44.0 Chronic obstructive pulmonary disease with (acute) lower respiratory infection; N39.0 Urinary tract infection, site not specified; Z68.1 Body mass index [BMI] 19.9 or less, adult; E78.5 Hyperlipidemia, unspecified; I12.9 Hypertensive chronic kidney disease with stage 1 through stage 4 chronic kidney disease, or unspecified chronic kidney disease; N18.9 Chronic kidney disease, unspecified; D64.9 Anemia, unspecified; R19.7 Diarrhea, unspecified; E83.42 Hypomagnesemia; E87.6 Hypokalemia; E55.9 Vitamin D deficiency, unspecified; G89.4 Chronic pain syndrome; K21.9 Gastro-esophageal reflux disease without esophagitis; F17.210 Nicotine dependence, cigarettes, uncomplicated; M79.7 Fibromyalgia; M81.0 Age-related osteoporosis without current pathological fracture; M19.90 Unspecified osteoarthritis, unspecified site; R63.0 Anorexia; B96.20 Unspecified Escherichia coli [E. coli] as the cause of diseases classified elsewhere; Z79.899 Other long term (current) drug therapy; Z79.82 Long term (current) use of aspirin; Z86.73 Personal history of transient ischemic attack (TIA), and cerebral infarction without residual deficits; Z83.3 Family history of diabetes mellitus
CPT/HCPCS: 36569; 71010; 71020; 74000; 76770; 80048; 80053; 80069; 80202; 81001; 82550; 82553; 82570; 82805; 82948; 83735; 83880; 83935; 84100; 84156; 84295; 84300; 84484; 84540; 85025; 85610; 85730; 87040; 87077; 87088; 87186; 87205; 87324; 89055; 93005; 94640; 94761; 94762; 96365; 96375; J0713; J1450; J1940; J2310; J2920; J2930; J3370; J3475; J7030; J7050; J7512; S0030; 97001-GP; 97116-GP; 97530-GP

== ENCOUNTER 2017-04-17 17:04 | Inpatient (IN) ==
[2017-04-17] MEDS ORDERED: MAGNESIUM SULFATE 2 GM/S.W.I. 2 GM/50 ML IVPB IV ONE (18:03)
[2017-04-17] MEDS ORDERED: VITAMIN D PO SCH (18:15)
[2017-04-17] MEDS: DETROL LA PO SCH (22:37)
[2017-04-17] MEDS: LOPRESSOR PO SCH ×2 (22:37→22:49)
[2017-04-17] MEDS: LIPITOR PO SCH (22:37)
[2017-04-17] MEDS: MAG-OX PO SCH (22:37)
[2017-04-17] MEDS: NS 1,000 ML IV SCH (22:37)
[2017-04-17] MEDS: RESTORIL PO SCH (22:37)
[2017-04-17 22:39] LABS: ALLEN TEST YES; BLOOD TYPE ARTERIAL; DRAW SITE R RADIAL; METHB 0.9 % (0.0-1.5); O2(CT) 12.8 mL/dL (15.0-23.0); PCO2(98.6) 37 mmHg (35-45); PO2(98.6) 102 mmHg (60-100); SAMPLE BLOOD; SAO2 97.5 % (95.0-100.0); THB 9.8 g/dL (11.5-17.4); pH(98.6) 7.44 (7.35-7.45)
[2017-04-17 22:41] LABS: MODALITY ROOM AIR
[2017-04-18] MEDS: PERCOCET-5 PO PRN ×4 (00:03→18:29)
[2017-04-18] MEDS: NICODERM PATCH TD SCH ×2 (00:03→09:08)
[2017-04-18 03:18] LABS: IRON SATURATION 14 %; TIBC 352 ug/dL; TOTAL IRON 51 ug/dL (49-151); UNBOUND IRON 301 ug/dL (112-346)
[2017-04-18 06:39] LABS: MANUAL DIFF NEEDED? NO
[2017-04-18 06:47] LABS: BASO% 0.8 % (0.0-0.8); EOS# 0.59 X1000 (0.0-0.7); HEMATOCRIT 28.9 % (37.0-47.0); HEMOGLOBIN 9.5 g/dL (12.0-16.0); LYMPH# 2.35 X1000 (1.2-3.4); MCH 31.4 PG (27-31); MCHC 32.9 g/dL (33-37); MCV 95.4 FL (81-99); MONO# 0.72 X1000 (0.11-0.59); MONO% 8.6 % (1.7-9.3); MPV 10.3 FL (7.4-10.4); NEUT% 55.6 % (42.2-75.2); PLT 384 X1000 (130-400); RBC 3.03 XMIL (4.2-5.4)
[2017-04-18 07:06] LABS: POTASSIUM 4.2 mmol/L (3.5-5.1)
--- NOTE | 2017-04-18 08:41 | HISTORY AND PHYSICAL ---
CHIEF COMPLAINT: Altered mental status, hyponatremia, anemia, not able to walk, lethargy. HISTORY OF PRESENT ILLNESS: 1. She is a 66-year-old white female, patient of Dr. Mcdaniels, who was seen in the [facility] with the above symptoms. I was called by Luigi, nurse practitioner. The patient needs to be hospitalized. Upon workup, sodium 127, hemoglobin 9, hematocrit was 26. We do not have a baseline. She was confused and basically admitted to the hospital for altered mental status, hyponatremia, and metabolic encephalopathy. After questioning, the patient appears to be euvolemic. She also has chronic pain in the back, and it looks like rule out SIADH, and she was started on IV fluids with gentle hydration and followup on electrolytes. 2. Anemia. She denies any GI symptoms. Baseline hematocrit was stable. She needs GI workup. Hemoccult stools and closely monitor the hemoglobin and hematocrit. Apparently, she tells me she had a GI workup done in the past by Dr. Andre somewhere in [place]. I do not have the details. As a result, she has been hospitalized. PAST MEDICAL HISTORY: 1. Chronic tobacco abuse. 2. IBS. 3. Hypertension. 4. Chronic back pain. 5. Vitamin D deficiency. 6. Vitamin B12 deficiency. 7. Anxiety/depression. 8. Acid reflux disease. 9. Hyperlipidemia. 10. COPD. ALLERGIES: Reported to oxybutynin, Lyrica, and sulfa drugs. PAST SURGICAL HISTORY: Reported left femur fracture repair. MEDICATIONS: 1. Potassium 10 mEq daily. 2. Detrol LA 4 mg at bedtime. 3. Metoprolol 25 p.o. b.i.d. 4. Zanaflex 4 mg at bedtime. 5. Neurontin 600 p.o. t.i.d. 6. Aspirin 81 mg daily. 7. Valium 5 mg daily. 8. Vitamin D 50,000 units once a week. 9. Temazepam 15 mg daily. 10. Lotronex 0.5 p.o. b.i.d. 11. Lexapro 20 daily. 12. TriCor 145 daily. 13. Protonix 40 daily. 14. Mag oxide 400 p.o. b.i.d. 15. Lipitor 40 daily. 16. Percocet q. 6 hours as needed. SOCIAL HISTORY: She is , single, living with her daughter. Smoking 1 pack a day for several years. No alcohol. FAMILY HISTORY: Mother of diabetic complications with dialysis. Father of massive heart attack. HEALTH MAINTENANCE: Up-to-date on flu vaccine in 2016, as well as pneumonia vaccine. Colonoscopy. REVIEW OF SYSTEMS: HEENT: No headache. No vision problem. No earache. No sore throat. Neck: No goiter. No neck pain. Cardiopulmonary: No chest pain, shortness of breath, PND, orthopnea. No lumps in the breast. GI: No abdominal pain, nausea, vomiting, diarrhea, constipation. No bleeding per rectum. : No urgency, hesitancy, frequency. Musculoskeletal: Chronic back pain, left hip pain. No swelling of feet. Neurologic: No dizziness, vertigo, headaches, nausea, vomiting, weakness. PHYSICAL EXAMINATION: Afebrile. Vital signs are stable. 5 feet. 121 pounds. HEENT: Atraumatic, normocephalic. Slightly pale. No jaundice. TMs are normal. Nose and throat within normal limits. Neck is supple. No lymphadenopathy. No goiter. Chest: Bilateral air entry. No rales. No wheezing. Heart sounds are regular. Belly is soft and nontender. Good bowel sounds. No masses palpable. Extremities: No peripheral edema or cyanosis. No obvious neurological deficits. INVESTIGATIONS: CBC: White cell count 8.3, hematocrit 28, platelets 384,000. MCV is normal. Sedimentation rate was 18. ABG: PH is 7.44, pCO2 of 37 PO2 of 102, carboxyhemoglobin 5.3. SMA- 7: Sodium 132, potassium 4.2, chloride 94. BUN 17, creatinine 1.0. Serum osmolality is low. Urine osmolality is low. Urine sodium 16. B12 is low. Ferritin is high. Iron profile is normal. Cortisol normal. ASSESSMENT AND PLAN: 1. A 66-year-old white female admitted to the hospital with hyponatremia due to syndrome of inappropriate antidiuretic hormone. Normal cortisol. Normal thyroid. Euvolemic. Will get a chest x-ray and serum urine osmolality consistent with syndrome of inappropriate antidiuretic hormone. Fluid restrictions. Lasix and salt tablets. Dr. Mcdaniels is going to follow up. 2. Anemia. Previous gastrointestinal workup was negative. The anemic profile is negative. B12 is low. She needs a B12 injection x5 and follow up outpatient. 3. Chronic obstructive pulmonary disease. Quit smoking. 4. Reconcile home medicines. 5. Chronic back pain with compression fracture. She also is continued on calcium and vitamin D. We will discuss with Dr. Mcdaniels. cc: MD Toñito Carnes MD
[2017-04-18] MEDS: LEXAPRO PO SCH (09:08)
[2017-04-18] MEDS: MAG-OX PO SCH ×2 (09:08→21:32)
[2017-04-18] MEDS: NEURONTIN PO SCH ×3 (09:08→18:31)
[2017-04-18] MEDS: ASPIRIN PO SCH (09:08)
[2017-04-18] MEDS: TRICOR PO SCH (09:09)
[2017-04-18] MEDS: LOPRESSOR PO SCH ×2 (09:10→21:32)
[2017-04-18] MEDS ORDERED: CYANOCOBALAMIN IM ONE (11:24)
--- NOTE | 2017-04-18 11:50 | PROGRESS NOTE ---
DATE: 04/18/2017 SUBJECTIVE: Ms. Beyer was admitted yesterday for hyponatremia. Her hemoglobin was 9.5. Stool has been negative for occult blood and sodium, which was 127 has come back up to 132 now. She is still having mild hyponatremia. She is getting IV normal saline. CBC shows hemoglobin 9.5, hematocrit 28.9, white count is 8.38. Her iron level is 51, percent saturation is 14%, ferritin is high and B 12 level is 241. We will give her injection of B 12 today. -8 cc: Toñito Mcdaniels MD
[2017-04-18] MEDS: NS 1,000 ML IV SCH (18:31)
[2017-04-18] MEDS: RESTORIL PO SCH (21:32)
[2017-04-18] MEDS: DETROL LA PO SCH (21:32)
[2017-04-18] MEDS: LIPITOR PO SCH (21:32)
[2017-04-19] MEDS: PERCOCET-5 PO PRN ×3 (00:23→13:11)
[2017-04-19 05:13] LABS: MANUAL DIFF NEEDED? NO
[2017-04-19 05:29] LABS: BASO% 1.3 % (0.0-0.8); EOS# 0.48 X1000 (0.0-0.7); EOS% 7.8 % (0.0-10.0); HEMATOCRIT 28.1 % (37.0-47.0); HEMOGLOBIN 9.5 g/dL (12.0-16.0); LYMPH# 2.87 X1000 (1.2-3.4); LYMPH% 46.4 % (20.5-51.1); MCH 32.4 PG (27-31); MCHC 33.8 g/dL (33-37); MCV 95.9 FL (81-99); MONO# 0.54 X1000 (0.11-0.59); MONO% 8.7 % (1.7-9.3); MPV 10.1 FL (7.4-10.4); NEUT% 35.8 % (42.2-75.2); PLT 363 X1000 (130-400); RBC 2.93 XMIL (4.2-5.4)
[2017-04-19 05:33] LABS: AGAP 10; BUN 17 mg/dL (8-22); CALCIUM 8.8 mg/dL (8.8-10.2); CHLORIDE 99 mmol/L (98-107); COSMO 269; POTASSIUM 4.4 mmol/L (3.5-5.1); SODIUM 134 mmol/L (136-145); TCO2 25 mmol/L (25-35)
[2017-04-19] MEDS: NS 1,000 ML IV SCH (06:31)
[2017-04-19] MEDS: MAG-OX PO SCH (08:40)
[2017-04-19] MEDS: LOPRESSOR PO SCH (08:42)
[2017-04-19] MEDS: LEXAPRO PO SCH (08:42)
[2017-04-19] MEDS: NEURONTIN PO SCH ×2 (08:42→13:12)
[2017-04-19] MEDS: TRICOR PO SCH (08:43)
[2017-04-19] MEDS: ASPIRIN PO SCH (08:43)
[2017-04-19] MEDS: NICODERM PATCH TD SCH (08:43)
[2017-04-19 11:33] VITALS: BP 115/75
--- NOTE | 2017-04-19 13:05 | PROGRESS NOTE ---
DATE: 04/19/2017 SUBJECTIVE: Ms. Beyer's sodium is 134 now. Her CBC continues to show anemia. She has B12 deficiency as well as some iron deficiency. She is going to continue the home medications. Will discharge her today. -1 cc: Toñito Mcdaniels MD
--- NOTE | 2017-04-19 13:29 | DISCHARGE SUMMARY ---
ADMISSION DATE: 04/17/2017 DISCHARGE DATE: 04/19/2017 Ms. Beyer is a 66-year-old white female, was admitted with hyponatremia as well as severe anemia and generalized weakness. Hemoglobin was 9.5. Arterial blood gases revealed slight elevation in the carboxyhemoglobin however her PO2 was 100. Her electrolytes, sodium here was 132 and medical surgical which was 127 came back up to 134, BUN and creatinine are normal. Urinalysis was negative. Urine osmolality was 125. COURSE IN THE HOSPITAL: She was given IV normal saline and her sodium came back up. She is feeling better. She is walking on the floor having now. We will discharge her today. FINAL DIAGNOSIS: Hyponatremia, the etiology definitely undetermined at the present time. cc: Toñito Mcdaniels MD
== END 2017-04-19 14:33 | disposition home or self-care (01) ==
LOC: DIRADM 17:04 → 4N 20:16
PROVIDERS: ADMIT Internal Medicine; ATTEND Internal Medicine

== ENCOUNTER 2019-05-02 15:36 | Inpatient (IN) ==
[2019-05-02] MEDS ORDERED: DUONEB (A & A) INH PRN (19:12)
--- NOTE | 2019-05-02 19:36 | HISTORY AND PHYSICAL ---
Ms. Beyer who is a 68-year-old white female, a known case of hypertension, however has been staying hypotensive lately and stopped the blood pressure medicine. She also has recurrent hyponatremia. Ms Beyer has been falling. She is extremely weak and she has been falling. She has history of anemia. She is a chronic heavy smoker and has been hypoxic. Today her oxygen saturation was 82% on room air. Other details of personal, past and family history reveal history of smoking for last 53 years. She has been cutting down. She has not been drinking. ALLERGIES: She is allergic to oxybutynin, pregabalin, Bactrim DS. PAST HISTORY: Of left carotid endarterectomy, tonsillectomy, partial hysterectomy. Recently she was having severe claudication and was found that she did have some blockage in the legs. We will try to repeat the studies in both legs. Other details she has severe degenerative disk disease in the lumbar spine and has been on chronic pain medication. REVIEW OF SYSTEMS: Other than generalized severe weakness, claudication pain, history of frequent falls she has fallen twice, she has hurt her right rib cage and her left hip. She had left hip replacement also . PHYSICAL EXAMINATION: Patient is alert, oriented. VITAL SIGNS: Reveal temperature normal, pulse 89 per minute, respiratory rate 20 per minute, blood pressure 96/60. Head normocephalic. Pupils PERRLA. Fundus examination not done. She is 4 feet 9 inches tall and weighs 119 pounds. There is no evidence of lymphadenopathy, thyroid enlargement, pedal edema, calf tenderness. She is anemic with pallor of skin and mucous membrane. She has feeble pulses in both feet. Throat examination is normal. ENT exam is unremarkable. BREAST: Exam not done. CHEST: Normal inspection. LUNGS: Clear on auscultation. There is tenderness over the right rib cage. PMI in the normal position. HEART: Sounds normal. No murmur, gallop or rub noted. ABDOMEN: Nondistended. Hernial orifices normal. No guarding, rigidity, free fluid, masses or organomegaly. Bowel sounds normal. RECTAL: Deferred. PUTAWAY DRIVER: Higher functions normal. Cranial nerves normal. Motor and sensory system examination unremarkable. Deep tendon reflexes reveal sluggish ankle and knee jerks. Plantars downgoing. Skull and spine examination reveals severely painful movements of the lumbosacral spine, SLR positive. No cerebellar signs or signs of meningeal irritation, locomotor exam and skin exam unremarkable except for the presence of anemia and mild dehydration. CLINICAL IMPRESSION: 1. Dehydration. 2. Anemia. 3. Hypoxia. 4. Chronic heavy smoker. 5. She has history of hypertension, recurrent hyponatremia. Plan to start IV fluids, start oxygen and respiratory therapy if needed. cc: Toñito Mcdaniels MD
[2019-05-02 19:39] LABS: ALLEN TEST YES; BE 0.8 mmoll (-3.0-3.0); BLOOD TYPE ARTERIAL; HCO3-(ACT) 25.6 mmoll (20.0-26.0); METHB 1.7 % (0.0-1.5); MODALITY CANNULA; O2(CT) 5.8 mL/dL (15.0-23.0); O2HB 92.6 % (95.0-99.0); PCO2(98.6) 32 mmHg (35-45); PO2(98.6) 112 mmHg (60-100); SAMPLE BLOOD; SAO2 98.5 % (95.0-100.0); THB 4.2 g/dL (11.5-17.4); pH(98.6) 7.49 (7.35-7.45)
--- NOTE | 2019-05-02 19:56 | Diag Imaging Result Doc PS360 ---
EXAM: RIBS ONLY RIGHT - 05/02/2019 HISTORY: Rt rib cage pain, H/o Fall. TECHNIQUE: Right RIBS two views COMPARISON: 11/14/2016 one view chest FINDINGS: There are apparent old fracture deformities of mid to upper right ribs. There is no discrete acute right rib fracture identified. IMPRESSION: Apparent old right rib fracture deformities. No discrete acute right rib fracture. Electronically signed by Burak Reyes 05/02/2019 7:53 PM
[2019-05-02] MEDS: D5 1/2 NS + KCL 10 MEQ 1,000 ML IV SCH (21:11)
[2019-05-02] MEDS: NORCO-10 PO PRN (21:38)
[2019-05-02] MEDS ORDERED: PATIENT'S OWN MED PO PRN (23:44)
[2019-05-03] MEDS: DETROL LA PO SCH (01:10)
[2019-05-03] MEDS: VALIUM PO PRN (01:10)
[2019-05-03 06:32] LABS: ALB/GLOB RATIO 1.5; ALBUMIN 2.9 g/dL (3.5-5.0); CALCIUM 8.2 mg/dL (8.8-10.2); CREATININE 1.1 mg/dL (0.5-0.9); MAGNESIUM 1.9 mg/dL (1.5-2.7); POTASSIUM 4.3 mmol/L (3.5-5.1); TOTAL BILIRUBIN 0.25 mg/dL (0.20-1.00); TOTAL PROTEIN 4.8 g/dL (6.3-8.3)
--- NOTE | 2019-05-03 06:55 | EKG Report ---
Test Performed on : 05/03/2019 06:48:06 AM Test Reason : CP Blood Pressure : / mmHG Vent. Rate : 085 BPM Atrial Rate : 085 BPM P-R Int : 218 ms QRS Dur : 078 ms QT Int : 408 ms P-R-T Axes : 068 055 081 degrees QTc Int : 485 ms Sinus rhythm. with 1st degree AV block. Otherwise normal ECG When compared with ECG of 24-FEB-2018 14:23, Nonspecific T wave abnormality now evident in Lateral leads QT has lengthened Confirmed by Tano CUNNINGHAM, Ludin Enriquez ([id number]) on 05/03/2019 5:06:20 PM
[2019-05-03] MEDS: PROTONIX PO SCH ×2 (06:57→08:49)
[2019-05-03 07:51] LABS: BASO# 0.12 X1000 (0.0-0.2); BASO% 1.4 % (0.0-0.8); EOS# 0.43 X1000 (0.0-0.7); EOS% 5.1 % (0.0-10.0); HEMATOCRIT 12.8 % (37.0-47.0); IMM GRAN# 0.06 X1000 (0.0-0.04); IMM GRAN% 0.7 % (0.0-0.5); LYMPH# 2.58 X1000 (1.2-3.4); LYMPH% 30.9 % (20.5-51.1); MCHC 31.3 g/dL (33-37); MCV 115.3 FL (81-99); MONO# 0.64 X1000 (0.11-0.59); MONO% 7.7 % (1.7-9.3); MPV 10.1 FL (7.4-10.4); NEUT# 4.53 X1000 (1.4-6.5); NEUT% 54.2 % (42.2-75.2); PLT 443 X1000 (130-400); RBC 1.11 XMIL (4.2-5.4); RDW 24.4 % (11.5-14.5); WBC 8.36 X1000 (4.8-10.8)
[2019-05-03] MEDS: D5 1/2 NS + KCL 10 MEQ 1,000 ML IV SCH ×2 (07:56→11:15)
--- NOTE | 2019-05-03 08:09 | Diag Imaging Result Doc PS360 ---
EXAM: CHEST-2 VIEWS INDICATION: hypoxia TECHNIQUE: 2 views COMPARISON: 11/14/2016 FINDINGS: There is stable scoliosis. The lungs are grossly clear. There is no discrete pleural fluid collection or pneumothorax. The cardiomediastinal silhouette and central vasculature are grossly unremarkable. IMPRESSION: No evidence of acute pathology by plain radiograph. Electronically signed by Daryn Mao 05/03/2019 8:07 AM
[2019-05-03 08:35] LABS: EOS 8 % (1-10); LYMPHS 40 % (21-51); MONO 8 % (1-9); NRBC 1 % (0-0); SEGS 44 % (42-75)
[2019-05-03 08:36] LABS: ANISOCYTOSIS 2+; HYPOCHROM 1+
[2019-05-03] MEDS: FISH OIL CONCENTRATE PO SCH (08:37)
[2019-05-03] MEDS: ASPIRIN PO SCH (08:37)
[2019-05-03] MEDS: MAG-OX PO SCH (08:37)
[2019-05-03] MEDS: CALTRATE 600 + D PO SCH (08:39)
[2019-05-03] MEDS: NEURONTIN PO SCH ×2 (08:39→15:52)
[2019-05-03] MEDS: FERROUS SULFATE PO SCH (08:39)
[2019-05-03] MEDS: LEXAPRO PO SCH (08:40)
[2019-05-03] MEDS: NORCO-10 PO PRN ×3 (08:40→22:21)
[2019-05-03] MEDS ORDERED: NORCO-10 PO SCH (09:00)
[2019-05-03] MEDS ORDERED: PLAVIX PO SCH (09:00)
--- NOTE | 2019-05-03 10:03 | PROGRESS NOTE ---
DATE: 05/03/2019 Ms. Beyer was admitted yesterday with history of frequent falls. She was extremely weak. O2 saturation was 82% on room air. She is extremely anemic. Hemoglobin is 4 g and hematocrit 12.8. Blood gases were quite normal with PO2 of 112 with her using 2 L of oxygen by nasal cannula. Lactate level was 1.5. Her sodium was normal, potassium 4.3, BUN 24, and creatinine 1.1. We are going to get a hematology consult as well as get 3 units of packed RBC transfused today. We will also do some hematologic workup. She is a smoker. We will get NicoDerm patch. -3 cc: Toñito Mcdaniels MD
[2019-05-03] MEDS: NICODERM PATCH TD SCH (10:43)
[2019-05-03] MEDS: VENTOLIN HFA INH SCH ×4 (10:44→20:31)
[2019-05-03 11:14] LABS: INR 4.5; PROTIME 45.7 Seconds (11.0-16.0)
--- NOTE | 2019-05-03 11:53 | GASTROENTEROLOGY CONSULTATION ---
DATE: 05/03/2019 ADMITTING PHYSICIAN: Dr. Mcdaniels. PRIMARY CARE DOCTOR: Dr. Mcdaniels. REASON FOR CONSULTATION: Severe symptomatic anemia. HISTORY OF PRESENT ILLNESS: Ms. Beyer is a 68-year-old female who was admitted on 05/02/2019 for feeling weak and tired and slightly hypotensive. She has history of TIA, for which she is on aspirin and Plavix. She was diagnosed with a DVT in the leg, for which she was started on Coumadin. On admission, her hemoglobin was 4 grams. She is a chronic heavy smoker. She has had a colonoscopy done a few years ago by Dr. Sanabria. She has history of IBS, for which she was put on Lotronex. She denies any nausea, vomiting, or vomiting blood. She also denies any bright blood in the stool. She does have occasional dark stools. She does not recall having an EGD done in the past. She denies any previous history of ulcer disease. PAST MEDICAL HISTORY: TIA, chronic smoker, irritable bowel syndrome, anemia, DVT in her legs, claudication and blockage in the circulation in the legs, peripheral arterial disease, degenerative disk disease in the lumbar spine, chronic pain medications. PAST SURGICAL HISTORY: Left carotid endarterectomy, tonsillectomy, partial hysterectomy, colonoscopy. FAMILY HISTORY: Noncontributory. ALLERGIES: Oxybutynin, pregabalin, Bactrim DS. REVIEW OF SYSTEMS: Denies any fevers, rigors, chills. Denies any chest pain. She does have some shortness of breath. She has history of COPD. Denies any nausea, vomiting, vomiting blood, or passing blood in the stools. She does have some intermittent dark stools. She does have chronic arthritis. She denies any nausea complaints. MEDICATIONS IN THE HOSPITAL: Included fenofibrate, potassium chloride, tolterodine, albuterol/ipratropium, albuterol sulfate inhaler, aspirin 81 every day, Lipitor, calcium, vitamin D, D5 half-normal at 80 mL/hour, Valium 5 mg daily, vitamin D, Lexapro, iron sulfate, gabapentin, hydrocodone/acetaminophen, magnesium oxide, NicoDerm patch, omega-3, Protonix p.o. once daily, and hydrocodone/acetaminophen 1 tablet p.o. t.i.d. DIET: She is on regular diet. PHYSICAL EXAMINATION: Vital Signs: Temperature of 98 degrees, pulse of 81, respiratory rate 16, blood pressure 99/55, saturating 95% on room air. Body weight of 119 pounds 11.2 ounces. BMI 25 kg/m2. General: Ms. Beyer is moderately built, moderately nourished, lying in bed in no acute distress. HEENT: Pale conjunctivae. No icterus. Pupils equal, reactive to light. Neck: Supple. Abdomen: Protuberant, soft, nontender, nondistended. No guarding or rebound. Extremities: No cyanosis, clubbing. Mild lower extremity edema noted. Neurologic: Alert, awake, oriented x3. IMAGING AND LABORATORY DATA: Hemoglobin and hematocrit are 4 and 12.8, white count of 8.36, platelet count of 443,000. Sodium 133, potassium 4.3, chloride 101, bicarb 24, anion gap of 8, BUN of 24, creatinine 1.1, glucose of 121, calcium is 8.2. Magnesium 1.9. Total bilirubin is 0.25, AST 18, ALT 8, alkaline phosphatase 69, total protein is 4.8, albumin of 2.9. ABG showing pH 7.49, pCO2 of 32, PO2 of 112. This is on 20% FiO2. Chest x-ray showed no evidence any acute pathology on plain x-ray. IMPRESSION AND PLAN: 1. Severe symptomatic anemia. 2. Chronic obstructive pulmonary disease. 3. Chronic heavy smoker. 4. Peripheral artery disease. 5. Transient ischemic attack. 6. History of deep venous thrombosis, on Coumadin. 7. History of irritable bowel syndrome. RECOMMENDATIONS: Will increase the Protonix to twice daily. We will continue to watch her blood counts. She is fixing to get 3 units of blood transfused today. Hematology consult has been ordered. We will order INR, PT, and PTT for today. The patient is counseled to quit smoking completely. Will avoid any blood thinners for now. The patient is on aspirin, Plavix, and Coumadin at home. She will continue on NicoDerm patch. We will schedule for EGD tomorrow if INR is less than 1.5. Will check Platelet aggregation studies. The above plans were discussed with the patient, and all questions were answered. Please call us with any further questions. We will follow along. Thank you for allowing us to participate in the care of your patient. cc: MD Toñito Awan MD MTDD
[2019-05-03] MEDS: FOLIC ACID PO SCH (12:25)
[2019-05-03] MEDS ORDERED: NS 500 ML IV SCH (13:00)
[2019-05-03 13:10] LABS: IRON SATURATION 19 %; TIBC 333 ug/dL; TOTAL IRON 64 ug/dL (49-151); UNBOUND IRON 269 ug/dL (112-346)
--- NOTE | 2019-05-03 14:01 | HEMO/ONC CONSULTATION ---
DATE: 05/03/2019 REASON FOR CONSULTATION: We are being consulted for Ms. Beyer regarding anemia. HISTORY OF PRESENT ILLNESS: Ms. Beyer was admitted to the hospital for recent hypotension and hyponatremia. She has been falling a lot lately. She has been diagnosed with hypertension, she states she is extremely weak, is a chronic heavy smoker and has been hypoxic in the past. She is on iron for last 3 years. She was admitted per Dr. Mcdaniels. We saw the patient in the clinic in 2012 for osteoporosis. She has not returned since then. PAST MEDICAL HISTORY: Hypertension, chronic smoker, hyponatremia, irritable bowel syndrome, anemia, DVT, claudication and blockage in the circulation of the legs, peripheral arterial disease, degenerative disk disease of the lumbar spine. SURGICAL HISTORY: Left carotid endarterectomy, tonsillectomy, partial hysterectomy, colonoscopy. ALLERGIES: Oxybutynin, pregabalin, Bactrim DS. REVIEW OF SYSTEMS: Denies fevers, rigors or chills, chest pain, positive for shortness of breath and chronic pain. HOME MEDICATIONS: Albuterol, Lotronex, baby aspirin, Lipitor, calcium with vitamin D3, Plavix, Valium, Lexapro, TriCor, ferrous sulfate, gabapentin, [place], magnesium oxide, fish oil, Protonix, Klor-Con, Detrol LA. VITAL SIGNS: Temperature 97.3 degrees, pulse rate 85, respiratory rate 16, blood pressure 127/66, O2 saturation 97% on room air, 5/10 back pain. PHYSICAL EXAM: Constitutional: The patient is in no acute distress Eyes: anicteric, pupils are equal, round and symmetric ENT: Oral mucosa normal Cardiovascular: Normal S1, S2. No murmurs, gallops or rub. Respiratory: Chest is clear to auscultation, normal respiratory effort. Gastrointestinal: Abdomen non-distended. No masses. Positive bowel sounds. Neurological: Alert and oriented times three. No focal motor deficits. Lymphatic: No enlarged lymph nodes palpated. LABORATORY: WBCs 8.36, hemoglobin 4.0, hematocrit 12.8, platelet count 443,000, MCV 115. PT 45.7, INR 4.5, PTT 69.5, sodium 133, potassium 4.3, creatinine 1.1, calcium 8.2, magnesium 1.9. Iron profile adequate. Folate 4.2. ASSESSMENT: 1. Severe Anemia. 2. Dehydration. 3. Hypertension. 4. Hyponatremia. 5. Folic acid and B-12 Deficiencies PLAN: Rehydrate patient. Use oxygen as needed to keep respiratory status stable. Transfuse as ordered by Dr. Mcdaniels to improve hemoglobin. Will continue obtain lab work up. Continue to monitor and treat as necessary. Dictated by LAUREN Holland for Levy Daniels MD Patient seen and examined. As above. Patient admitted with tiredness and fatigue and hemoglobin of 4. She denies blood per rectum. She reports of being on oral iron for about 3 years and has occasional blackish stool. She denies reflux symptoms. She was apparently diagnosed with a DVT about a month ago and started on Coumadin. She is also on aspirin and Plavix from peripheral vascular disease standpoint. Dr. Briggs has been consulted and plans to do scopes tomorrow. We will get peripheral blood workup to evaluate her anemia. Discussed with Dr. Mcdaniels and Dr. Briggs. For now we will give her a dose of IV vitamin K. Blood transfusion is in process. Thank you for this consultation. Levy Daniels M.D. cc: MD Toñito Clemons MD [facility]
[2019-05-03 14:41] LABS: RETIC% 25.46 % (0.8-2.1); RETIC-HE 37.9 PG (28.2-36.6)
[2019-05-03] MEDS: VITAMIN K 10 MG in NS 50 ML IV SCH (15:51)
[2019-05-03] MEDS: VITAMIN B-12 SL SCH (15:51)
[2019-05-03] MEDS ORDERED: LASIX IV ONE (19:06)
[2019-05-03] MEDS ORDERED: DETROL LA PO SCH (21:00)
[2019-05-04] MEDS: KLOR-CON PO SCH ×2 (00:03→23:01)
[2019-05-04] MEDS: LIPITOR PO SCH ×2 (00:03→23:00)
[2019-05-04] MEDS: FISH OIL CONCENTRATE PO SCH ×3 (00:04→23:01)
[2019-05-04] MEDS: DETROL LA PO SCH ×2 (00:04→23:02)
[2019-05-04] MEDS: NEURONTIN PO SCH ×4 (00:04→23:02)
[2019-05-04] MEDS: FOLIC ACID PO SCH ×3 (00:04→23:00)
[2019-05-04] MEDS: PROTONIX PO SCH ×3 (00:04→23:01)
[2019-05-04] MEDS: LOFIBRA PO SCH ×2 (00:05→23:02)
[2019-05-04] MEDS: D5 1/2 NS + KCL 10 MEQ 1,000 ML IV SCH ×3 (02:25→17:10)
[2019-05-04] MEDS: NORCO-10 PO PRN ×3 (06:17→20:22)
[2019-05-04 06:40] LABS: AGAP 9; BUN 15 mg/dL (8-22); CALCIUM 8.6 mg/dL (8.8-10.2); CHLORIDE 103 mmol/L (98-107); COSMO 275; CREATININE 0.9 mg/dL (0.5-0.9); ESTIMATED GFR > 60; GLUCOSE 99 mg/dL (70-104); POTASSIUM 3.9 mmol/L (3.5-5.1); SODIUM 137 mmol/L (136-145); TCO2 25 mmol/L (25-35)
[2019-05-04 06:58] LABS: BASO# 0.05 X1000 (0.0-0.2); BASO% 0.6 % (0.0-0.8); EOS# 0.45 X1000 (0.0-0.7); EOS% 5.4 % (0.0-10.0); HEMOGLOBIN 9.9 g/dL (12.0-16.0); IMM GRAN# 0.05 X1000 (0.0-0.04); IMM GRAN% 0.6 % (0.0-0.5); INR 1.04; LYMPH# 1.61 X1000 (1.2-3.4); LYMPH% 19.5 % (20.5-51.1); MCH 30.8 PG (27-31); MCV 93.5 FL (81-99); MONO% 7.3 % (1.7-9.3); MPV 9.9 FL (7.4-10.4); NEUT% 66.6 % (42.2-75.2); PLT 381 X1000 (130-400); PROTIME 14.4 Seconds (11.0-16.0); RBC 3.21 XMIL (4.2-5.4); RDW 20.6 % (11.5-14.5); WBC 8.26 X1000 (4.8-10.8)
[2019-05-04] MEDS ORDERED: DIPRIVAN 1% ONE ×2 (08:42)
[2019-05-04] MEDS ORDERED: ROBINUL ONE (08:42)
[2019-05-04] MEDS ORDERED: XYLOCAINE-MPF 2% ONE (08:42)
[2019-05-04] MEDS ORDERED: VERSED ONE (08:42)
[2019-05-04] MEDS: VENTOLIN HFA INH SCH ×3 (09:09→22:15)
--- NOTE | 2019-05-04 09:30 | PROGRESS NOTE ---
DATE: 05/04/2019 SUBJECTIVE: Ms. Beyer's hemoglobin has come up to 9.9 after 3 units of packed RBC transfusion. Her INR has come down from 4.5 to 1.04. Arterial blood gases were normal and electrolytes status looks fairly well. Her ferritin level was 208. Liver enzymes are normal. The B 12 level was 255. Folate level was 4.2, somewhat lower. Overall condition is otherwise unchanged. She is still going for an endoscopy this morning. We will continue with the current management. -6 cc: Toñito Mcdaniels MD
--- NOTE | 2019-05-04 09:35 | ENDOSCOPY OPERATIVE NOTE ---
[facility] ENDOSCOPY OPERATIVE NOTE , PATIENT: Marlen Beyer ADMISSION DATE: 05/04/2019 MR#: [id number] [facility] 1950 [id number] EGD PROCEDURE REPORT PROCEDURE DATE: 05/04/2019 SURGEON: Yves Reyes MD STATUS: inpatient BULK SAUSAGE CASING TIER OFF: PREOPERATIVE DIAGNOSIS: The patient is a 68 yr old female here for an EGD due to anemia. PROCEDURE PERFORMED: EGD w/ control of bleeding MEDICATIONS: Per Anesthesia TOPICAL ANESTHETIC: CONSENT: The patient understands the risks and benefits of the procedure and understands that these r isks include, but are not limited to: sedation, allergic reaction, infection, perforation and/or bleeding. Alternative means of evaluation and treatment include, among others: physical exam, x-rays, and/or surgical intervention. The patient elects to proceed with this endoscopic procedure. HISORY AND PHYSICAL: 05/04/2019 function. Hand hygiene and appropriate measures for infection prevention was taken. After the risks, benefits and alternatives of the procedure were thoroughly explained, Informed consent was verified, confirmed and timeout was successfully executed by the treatment team. The patient was anesthetized with topical anesthesia and the CK48-r18 ([id number]) endoscope was introduced through the mouth and advanced to the second portion of the duoden um. Retroflexion was performed in the stomach and revealed oozing gastritis in fundus. The gastroscope was then slowl y withdrawn and removed. ESOPHAGUS: The mucosa of the esophagus appeared normal. STOMACH: Moderate erosive gastritis (inflammation) was found in the gastric fundus. Cauterized with monopolar probe. Random gastric biopsies obtained. This likely represents the source of anemia. DUODENUM: The duodenal mucosa showed no abnormalities in the duodenal bulb and 2nd part duodenum. SPECIMENS REMOVED: Yes ADVERSE EVENTS: There were no complications. POSTOPERATIVE DIAGNOSIS: ESOPHAGUS: The mucosa of the esophagus appeared normal. STOMACH: Moderate erosive gastritis (inflammation) was found in the gastric fundus. Cauterized with monopolar probe. A random gastric biopsy was performed using cold forceps. Sample sent for histology. Otherwise tyree l gastric mucosa. RECOMMENDATIONS: 1. Continue PPI PO BID for 3 months, then once daily 2. Avoid NSAIDs 3. Advance diet as tolerated 4. Follow-up pathology 5. Will sign off. Follow-up in GI clinic in 2-4 weeks REPEAT EXAM: Yves Reyes MD eSigned: Yves Reyes MD 05/04/2019 9:35 AM cc: PATIENT NAME: Marlen Beyer MR#: [id number]
[2019-05-04] MEDS: ASPIRIN PO SCH (10:40)
[2019-05-04] MEDS: VITAMIN B-12 SL SCH (10:41)
[2019-05-04] MEDS: CALTRATE 600 + D PO SCH (10:41)
[2019-05-04] MEDS: MAG-OX PO SCH (10:42)
[2019-05-04] MEDS: FERROUS SULFATE PO SCH (10:42)
[2019-05-04] MEDS: VITAMIN K 10 MG in NS 50 ML IV SCH (11:50)
[2019-05-04] MEDS: LEXAPRO PO SCH (11:50)
[2019-05-04] MEDS: NICODERM PATCH TD SCH (11:50)
--- NOTE | 2019-05-04 17:17 | HEMO/ONC PROGRESS NOTE ---
DATE: 05/04/2019 SUBJECTIVE: Ms. Beyer is lying flat in bed. She was made NPO for the day. There is a plan to do a EGD, colonoscopy today. She states she still feels rather weak. OBJECTIVE: Vital signs: Temperature 97.7 degrees, pulse rate 74, respiratory rate 20, blood pressure 136/73, O2 saturation 97% on room air. She is in 0/10 pain. General: The patient is in no acute distress. Eyes: Anicteric. Pupils were round, symmetric, equal. Ears, Nose, and Throat: Oral mucosa is normal. Cardiovascular: Normal S1, S2. No murmurs, gallops or rubs. Respiratory: Chest is clear to auscultation. Normal respiratory effort. Gastrointestinal: Abdomen is soft, nontender, nondistended. Neurological: Alert and oriented x3. No focal motor deficits. LABORATORY: WBC 8.26, hemoglobin 9.9, hematocrit 30, platelet count 381,000. PT 14.4, INR 1.04. Calcium 8.6. ASSESSMENT: 1. Severe anemia. 2. Dehydration. 3. Hypertension. 4. Hyponatremia. 5. Folic acid and B12 deficiency. PLAN: H/H has significantly improved with transfusion. We await results of EGD/colonoscopy. We will continue to follow. Dictated by LAUREN Holland for Levy Daniels MD Patient seen and examined. Patients H and H has significantly improved with transfusion. Patient denies any further bleeding. Labs revealed significant reticulocytosis suggesting recent hemorrhage. No evidence of hemolysis. She is due to undergo EGD/colonoscopy today. Continue to support transfusion as needed. History of recent DVT. Anticoagulation on hold. Consider repeating Doppler ultrasound. Levy Daniels M.D. cc: MD Toñito Clemons MD [facility]
[2019-05-04] MEDS: VALIUM PO PRN (23:06)
[2019-05-05] MEDS: NORCO-10 PO PRN ×3 (03:02→15:14)
[2019-05-05] MEDS: D5 1/2 NS + KCL 10 MEQ 1,000 ML IV SCH ×2 (04:44→11:55)
[2019-05-05] MEDS: VENTOLIN HFA INH SCH ×2 (07:58→16:15)
[2019-05-05] MEDS: FISH OIL CONCENTRATE PO SCH (09:21)
[2019-05-05] MEDS: FOLIC ACID PO SCH (09:21)
[2019-05-05] MEDS: VITAMIN B-12 SL SCH (09:21)
[2019-05-05] MEDS: FERROUS SULFATE PO SCH (09:21)
[2019-05-05] MEDS: PROTONIX PO SCH (09:21)
[2019-05-05] MEDS: LEXAPRO PO SCH (09:21)
[2019-05-05] MEDS: CALTRATE 600 + D PO SCH (09:21)
[2019-05-05] MEDS: NICODERM PATCH TD SCH (09:21)
[2019-05-05] MEDS: NEURONTIN PO SCH ×2 (09:21→15:14)
[2019-05-05] MEDS: ASPIRIN PO SCH (09:21)
[2019-05-05] MEDS: VITAMIN K 10 MG in NS 50 ML IV SCH (09:21)
[2019-05-05] MEDS: MAG-OX PO SCH (09:21)
[2019-05-05 09:27] LABS: BASO# 0.04 X1000 (0.0-0.2); BASO% 0.6 % (0.0-0.8); EOS# 0.36 X1000 (0.0-0.7); EOS% 5.6 % (0.0-10.0); HEMATOCRIT 29.5 % (37.0-47.0); HEMOGLOBIN 9.6 g/dL (12.0-16.0); IMM GRAN# 0.03 X1000 (0.0-0.04); IMM GRAN% 0.5 % (0.0-0.5); LYMPH# 1.92 X1000 (1.2-3.4); LYMPH% 29.9 % (20.5-51.1); MCH 31.4 PG (27-31); MCHC 32.5 g/dL (33-37); MCV 96.4 FL (81-99); MONO# 0.71 X1000 (0.11-0.59); MPV 9.8 FL (7.4-10.4); NEUT# 3.37 X1000 (1.4-6.5); NEUT% 52.4 % (42.2-75.2); PLT 368 X1000 (130-400); RBC 3.06 XMIL (4.2-5.4); RDW 22.7 % (11.5-14.5); WBC 6.43 X1000 (4.8-10.8)
--- NOTE | 2019-05-05 09:28 | PROGRESS NOTE ---
DATE: 05/05/2019 Ms. Beyer has severe iron deficiency anemia and she received 3 units of packed RBCs yesterday. She was seen by Dr. Daniels also. She had an EGD done yesterday. EGD revealed severe antral gastritis and hemorrhages. She was advised to avoid NSAIDs. Her last hemoglobin after 3 units of transfusion was 9.9. She wants to be discharged home. We will discharge her after Dr. Daniels checks her. I am going to give her prescriptions for omeprazole as well as Carafate and ask her to avoid Plavix for the time being. -7 cc: Toñito Mcdaniels MD
[2019-05-05 09:36] LABS: INR 0.92; PROTIME 13.1 Seconds (11.0-16.0)
[2019-05-05 16:50] VITALS: BP 117/65
--- NOTE | 2019-05-05 17:07 | HEMO/ONC PROGRESS NOTE ---
DATE: 05/05/2019 SUBJECTIVE: The patient appears more awake and alert, sitting up in bed. She denies any pain. She believes she is going to be discharged today. OBJECTIVE: Vital signs: Temperature 97.7 degrees, pulse rate 83, respiratory rate 20, blood pressure 138/97, O2 saturation 98% on room air. Pain: She is in 0/10 pain. HEENT: Eyes anicteric. Pupils round, symmetric, and equal. Oral mucosa is normal. Cardiovascular: Normal S1, S2. No murmurs, gallops, or rubs. Respiratory: Chest clear to auscultation. Normal respiratory effort. Gastrointestinal: Abdomen is soft, nontender, nondistended. Neurological: Awake and alert and oriented x3. No focal motor deficits. LABORATORY: WBC 6.43, hemoglobin 9.6, hematocrit 29.5, platelet count 368,000. ASSESSMENT: 1. Severe anemia. 2. Dehydration. 3. Hyponatremia. 4. Folic acid and B12 deficiencies. OUR PLAN: The patient's hemoglobin and hematocrit have significantly improved for transfusion. The patient denies any further bleeding. Her reticulocyte count suggested hemorrhage. There was no evidence of hemolysis. Gastroenterology performed EGD/colonoscopy and treated the patient per their findings. She needs to remain off any anticoagulation. We would like to order a Doppler of bilateral lower extremities. We will see the patient as an outpatient for follow-up. Dictated by LAUREN Holland for Levy Daniels MD Patient seen and examined. As above. GI evaluation noted. H and H is now stable. Check Doppler ultrasound of lower extremities and if that is negative, plan to discharge her home. We will follow her up outpatient. Levy Daniels M.D. cc: MD Toñito Clemons MD [facility]
[2019-05-07] MEDS ORDERED: VITAMIN D PO SCH (09:00)
--- NOTE | 2019-05-07 21:39 | Extremity Venous Study ---
PROCEDURE NAME: Venous U/S Bilateral Legs - 05/05/2019 [employer] OPERATOR: Oseas. REQUESTING PHYSICIAN: Dr. Daniels. INDICATIONS: Edema. FINDINGS: Deep and superficial veins of bilateral lower extremities were visualized along their course. All vessels appeared compressible with forward flow and no evidence of intraluminal thrombus. SUMMARY: No deep or superficial venous thrombosis see in bilateral lower extremities. cc: MD Levy Knox MD Amit V. Vora, MD
--- NOTE | 2019-05-08 09:19 | DISCHARGE SUMMARY ---
ADMISSION DATE: 05/02/2019 DISCHARGE DATE: 05/05/2019 COURSE IN THE HOSPITAL: Ms. Marlen Beyer, who is a 68-year-old white female, was admitted with severe anemia. Her hemoglobin was 4.0 g, hematocrit 12.48. Final hemoglobin at the time of discharge was 9.6, hematocrit was 29.5, platelet count was normal. The reticulocyte count was 37.9%. INR was 4.5 when she came in and then it went down to 1.04. Blood gases revealed pH 7.49, pCO2 32, PO2 was 112. Electrolytes are normal. BUN and creatinine were normal. After we learned about her hemoglobin and hematocrit, we transfused her 3 units. GI and Hematology consult was made. She had endoscopy done on the next day, which revealed the presence of severe enterogastritis and hemorrhage. She had endoscopy done and she was also seen by Dr. Daniels who repeated her venous flow Doppler studies in the legs and Doppler studies were negative for blood clots and so we decided to stop the Coumadin as well as Plavix both for the time being. She will be seen in the office in about 7 days. FINAL DIAGNOSIS: Severe anemia secondary to gastrointestinal bleeding. cc: Toñito Mcdaniels MD MTDD
== END 2019-05-05 17:14 | disposition home or self-care (01) | DRG 811 ==
LOC: DIRADM 15:36 → 3N 18:13 → 4N 18:34
PROVIDERS: ADMIT Internal Medicine; ATTEND Internal Medicine
PROC: EN.HEAT (2019-05-04 09:05)
CPT/HCPCS: 36430; 71020; 71046; 71100; 80048; 80053; 82607; 82728; 82746; 82805; 83540; 83550; 83615; 83735; 85025; 85045; 85576; 85610; 85730; 86850; 86900; 86901; 86920; 88305; 88312; 93005; 93010; 93970; 94640; 94761; A9270; J1940; J2250; J3430; J3480; J7040; P9016